=== PATIENT | female | born 1995 | race African-American/Black ===

== ENCOUNTER 2019-09-05 23:38 | Emergency (ER) | payer SELFPAY ==
[2019-09-06] MEDS ORDERED: NA CHLORIDE 0.9% 0 ML ONE (00:14)
[2019-09-06 00:17] LABS: Absolute Lymphocytes (CBC) 2.7 K/uL (0.7-4.9); Basophils % 0.9 % (0-1.3); Hematocrit 23.5 % (36.0-45.0); Lymphocytes % 37.9 % (15.3-44.8); MPV 9.4 fL (7.6-11.3); Protime INR 0.89; RBC Red Blood Cell Count 2.45 M/uL (3.86-4.86)
[2019-09-06 00:30] LABS: ALT/SGPT 14 U/L (12-78); AST/SGOT 18 U/L (15-37); Alkaline Phosphatase 70 U/L (45-117); BUN Blood Urea Nitrogen 11 mg/dL (7-18); Bicarbonate 22 mmol/L (21-32); Bilirubin Direct < 0.1 mg/dL (0-0.2); Bilirubin Total 0.2 mg/dL (0.2-1.0); Glucose Level 99 mg/dL (74-106); Magnesium 1.8 mg/dL (1.8-2.4); NT PRO-BNP 88 pg/mL (<125); Potassium 3.5 mmol/L (3.5-5.1); Protein, Total 6.2 g/dL (6.4-8.2); Sodium Level 141 mmol/L (136-145); Troponin (Emerg Dept Use Only) < 0.02 ng/mL (0.0-0.045)
--- NOTE | 2019-09-06 02:42 | EDPHYS ---
Physician Documentation [facility] Name: Nette Fabian Age: 23 yrs Sex: Female : 1995 Arrival Date: 09/05/2019 Time: 23:46 Bed 4 Private MD: ED Physician Luis Gordon HPI: 09/06 00:00 This 23 yrs old Black Female presents to ER via EMS with complaints of Chest Pain. pm1 00:00 The patient or guardian reports chest pain that is located primarily in the mid-sternal pm1 area. The pain does not radiate. Associated signs and symptoms: Pertinent positives: shortness of breath, vaginal bleeding. The chest pain is described as sharp. Duration: The patient or guardian reports a single episode, that is still ongoing. Modifying factors: The symptoms are alleviated by nothing. the symptoms are aggravated by palpation of area. Severity of pain: in the emergency department the pain is unchanged. The patient has been recently seen by a physician: Patient was seen at [place] on 09/02/2019 for vaginal bleeding. Ultrasound was performed, labs collected, and precription for iron prescribed. Patient has not started iron supplements yet. Patient presenting today with complaints of chest pain and shortness of breath that started at 2100. She has had 5 days of vaginal bleeding that she reports got worse today. She had a miscarriage 1 month ago. She was 4 months but the fetus only measure 8 weeks without a heart beat. She was receiving care at [facility] and they gave her pills to abort the fetus. She had no vaginal bleeding for 1.5 weeks until 5 days ago. Reports bleeding got worse today. 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 - Coronavirus screen:: The patient has NOT traveled to [place], [place], or [place] in the past 14 days. Proceed with normal triage process as indicated. The patient has NOT had contact with known/suspected case of Coronavirus? Proceed with normal triage procedures. - Social history:: Smoking status: Patient reports the use of cigarette tobacco products, smokes one pack cigarettes per day. Patient uses alcohol, occasionally. Patient/guardian denies using street drugs. - Ebola Screening: : Patient negative for fever greater than or equal to 101.5 degrees Fahrenheit, and additional compatible Ebola Virus Disease symptoms Patient denies exposure to infectious person Patient denies travel to an Ebola-affected area in the 21 days before illness onset. ROS: 09/06 00:00 Constitutional: Negative for fever, chills, and weight loss, Eyes: Negative for injury, pm1 pain, redness, and discharge, ENT: Negative for injury, pain, and discharge, Neck: Negative for injury, pain, and swelling. Abdomen/GI: Negative for abdominal pain, nausea, vomiting, diarrhea, and constipation, Back: Negative for injury and pain. MS/Extremity: Negative for injury and deformity, Skin: Negative for injury, rash, and discoloration, Neuro: Negative for headache, weakness, numbness, tingling, and seizure. Cardiovascular: Positive for chest pain, Negative for edema, orthopnea, palpitations. Respiratory: Positive for shortness of breath, Negative for cough, wheezing. : Positive for vaginal bleeding, Negative for urinary symptoms, pelvic pain. Exam: 00:00 Constitutional: This is a well developed, well nourished patient who is awake, alert, pm1 and in no acute distress. Head/Face: Normocephalic, atraumatic. Eyes: Pupils equal round and reactive to light, extra-ocular motions intact. Lids and lashes normal. Conjunctiva and sclera are non-icteric and not injected. Cornea within normal limits. Periorbital areas with no swelling, redness, or edema. ENT: Nares patent. No nasal discharge, no septal abnormalities noted. Tympanic membranes are normal and external auditory canals are clear. Oropharynx with no redness, swelling, or masses, exudates, or evidence of obstruction, uvula midline. Mucous membranes moist. Neck: Trachea midline, no thyromegaly or masses palpated, and no cervical lymphadenopathy. Supple, full range of motion without nuchal rigidity, or vertebral point tenderness. No Meningismus. Cardiovascular: Regular rate and rhythm with a normal S1 and S2. No gallops, murmurs, or rubs. No pulse deficits. 00:00 Respiratory: Lungs have equal breath sounds bilaterally, clear to auscultation and percussion. No rales, rhonchi or wheezes noted. No increased work of breathing, no retractions or nasal flaring. Abdomen/GI: Soft, non-tender, with normal bowel sounds. No distension or tympany. No guarding or rebound. No evidence of tenderness throughout. Back: No spinal tenderness. No costovertebral tenderness. Full range of motion. Skin: Warm, dry with normal turgor. Normal color with no rashes, no lesions, and no evidence of cellulitis. MS/ Extremity: Pulses equal, no cyanosis. Neurovascular intact. Full, normal range of motion. 00:00 Chest/axilla: Inspection: normal, Palpation: tenderness, of the mid-sternal area, that totally reproduces the patient's complaints. 00:00 Neuro: Orientation: is normal, Motor: is normal, moves all fours. 00:20 : Patient without any current vaginal bleeding. Tampon with spotting of blood pm1 present. Vital Signs: 09/05 23:26 BP 134 / 85; Pulse 123; Resp 24; Temp 98.3(O); Pulse Ox 100% on R/A; Weight 62.14 kg fc (R); Height 5 ft. 6 in. (167.64 cm) (R); Pain 9/10; 09/06 00:37 BP 120 / 84; Pulse 102; Resp 17 S; Pulse Ox 100% on R/A; jd3 01:28 BP 121 / 66; Pulse 102; Resp 18 S; Pulse Ox 100% on R/A; jd3 02:31 BP 125 / 87; Pulse 93; Resp 17 S; Pulse Ox 99% on R/A; jd3 09/05 23:26 Body Mass Index 22.11 (62.14 kg, 167.64 cm) MDM: 00:18 Patient medically screened. pm1 00:52 Data reviewed: diagnostic data from outside facility, CBC, electrolytes, Pelvic pm1 ultrasound from [place] [facility]. 02:19 Data reviewed: vital signs. Data interpreted: Pulse oximetry: on room air is 100 %. pm1 Interpretation: normal. 02:39 Counseling: I had a detailed discussion with the patient and/or guardian regarding: the pm1 historical points, exam findings, and any diagnostic results supporting the discharge/admit diagnosis, lab results, radiology results, the need for outpatient follow up, a family practitioner, an OB/Gyne specialist, to return to the emergency department if symptoms worsen or persist or if there are any questions or concerns that arise at home. 02:54 ED course: Patient with two negative troponin levels. Patient's tachycardia resolved pm1 with IV fluids and pain mediations. Patient is not having anymore vaginal bleeding and her hemoglobin level is not at transfusion level. therefore will discharge the patient home to follow up with liability claims representative and educated on return precautions . 09/05 23:50 Order name: Basic Metabolic Panel 09/05 23:50 Order name: CBC with Diff 09/05 23:50 Order name: LFT's 09/05 23:50 Order name: Magnesium 09/05 23:50 Order name: NT PRO-BNP 09/05 23:50 Order name: PT-INR 09/05 23:50 Order name: Troponin (emerg Dept Use Only) [facility] 09/05 23:55 Order name: Type And Screen 09/06 00:22 Order name: CBC with Automated Diff; Complete Time: 00:28 EDMS 09/06 00:22 Order name: Protime (+INR); Complete Time: 01:10 EDMS 09/06 00:24 Order name: D-Dimer jd3 09/06 00:31 Order name: Basic Metabolic Panel; Complete Time: 00:34 EDMS 09/06 00:31 Order name: Liver (Hepatic) Function; Complete Time: 00:34 EDMS 09/06 00:31 Order name: Troponin (Emerg Dept Use Only); Complete Time: 00:34 EDMS 09/05 23:50 Order name: XRAY Chest (1 view) 09/05 23:50 Order name: EKG; Complete Time: 23:59 [facility] 09/05 23:50 Order name: Cardiac monitoring; Complete Time: 23:51 [facility] 09/05 23:50 Order name: EKG - Nurse/Tech; Complete Time: 00:02 [facility] 09/05 23:50 Order name: IV Saline Lock; Complete Time: 00:02 [facility] 09/05 23:50 Order name: Labs collected and sent; Complete Time: 00:02 [facility] 09/06 00:31 Order name: NT PRO-BNP; Complete Time: 00:34 EDMS 09/06 00:31 Order name: Magnesium; Complete Time: 00:34 EDMS 09/06 00:59 Order name: Type and Screen; Complete Time: 01:10 EDMS 09/06 01:01 Order name: D-Dimer; Complete Time: 01:10 EDMS 09/06 01:51 Order name: Troponin (emerg Dept Use Only) pm1 09/06 02:37 Order name: Troponin (Emerg Dept Use Only); Complete Time: 02:39 EDMS 09/05 23:50 Order name: O2 Per Protocol; Complete Time: 23:51 mw2 09/05 23:50 Order name: O2 Sat Monitoring; Complete Time: 23:51 mw2 Administered Medications: 00:36 Drug: NS 0.9% 1000 ml Route: IV; Rate: 1 bolus; Site: right antecubital; jd3 02:07 Follow up: Response: No adverse reaction; IV Status: Completed infusion; IV Intake: jd3 1000ml 00:37 Drug: morphine 4 mg Route: IVP; Site: right antecubital; jd3 01:30 Follow up: Response: No adverse reaction; RASS: Alert and Calm (0) jd3 00:37 Drug: Zofran 4 mg Route: IVP; Site: right antecubital; jd3 01:30 Follow up: Response: No adverse reaction jd3 02:06 Drug: TORadol - Ketorolac 15 mg Route: IVP; Site: right antecubital; jd3 02:55 Follow up: Response: No adverse reaction jd3 Disposition: 05:18 Co-signature as Attending Physician, Luis Gordon MD I agree with the assessment and tw4 plan of care. Disposition: 09/06/19 02:41 Discharged to Home. Impression: Chest pain, unspecified, Anemia, unspecified, Abnormal uterine and vaginal bleeding, unspecified. - Condition is Stable. - Discharge Instructions: Abnormal Uterine Bleeding, Anemia, Nonspecific, Nonspecific Chest Pain. - Medication Reconciliation Form, Thank You Letter, Antibiotic Education, Prescription Opioid Use, Work release form form. - Follow up: Emergency Department; When: As needed; Reason: Worsening of condition. Follow up: Private Physician; When: 2 - 3 days; Reason: Recheck today's complaints, Continuance of care, Re-evaluation by your physician. - Problem is new. - Symptoms have improved. Signatures: Dispatcher [employer] EDTX Anjali Salinas, RN RN Geronimo Jones NP MOBILE HEAVY EQUIPMENT OPERATOR pm1 Reid Aviles RN RN jLuis Foreman MD MD tw4 Harjeet Enrique mw2 Corrections: (The following items were deleted from the chart) 02:56 02:41 09/06/2019 02:41 Discharged to Home. Impression: Chest pain, unspecified; Anemia, jd3 unspecified; Abnormal uterine and vaginal bleeding, unspecified. Condition is Stable. Forms are Medication Reconciliation Form, Thank You Letter, Antibiotic Education, Prescription Opioid Use. Follow up: Emergency Department; When: As needed; Reason: Worsening of condition. Follow up: Private Physician; When: 2 - 3 days; Reason: Recheck today's complaints, Continuance of care, Re-evaluation by your physician. Problem is new. Symptoms have improved. pm1
--- NOTE | 2019-09-06 02:42 | ER ---
Nurse's Notes [facility] Name: Nette Fabian Age: 23 yrs Sex: Female : 1995 Arrival Date: 09/05/2019 Time: 23:46 Bed 4 Private MD: Diagnosis: Chest pain, unspecified;Anemia, unspecified;Abnormal uterine and vaginal bleeding, unspecified Presentation: 09/05 23:26 Presenting complaint: Patient states: that for approx 5 days she has been having fc significant vaginal bleeding. Hx of miscarriage 1 month ago. Today the bleeding got worse and she has gone thru 4-5 pads every hr. Now she is currently having chest pain and shortness of breath but denies any nausea or vomiting. Transition of care: patient was not received from another setting of care. Onset of symptoms was August 31, 2019. Risk Assessment: Do you want to hurt yourself or someone else? Patient reports no desire to harm self or others. Initial Sepsis Screen: Does the patient meet any 2 criteria? RR > 20 per min. HR > 90 bpm. Yes Does the patient have a suspected source of infection? No. Patient's initial sepsis screen is negative. Care prior to arrival: Medication(s) given: Normal saline infusion, 300 ml IV initiated. 20 GA, in the right antecubital area. 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 - Coronavirus screen:: The patient has NOT traveled to [place], [place], or [place] in the past 14 days. Proceed with normal triage process as indicated. The patient has NOT had contact with known/suspected case of Coronavirus? Proceed with normal triage procedures. - Social history:: Smoking status: Patient reports the use of cigarette tobacco products, smokes one pack cigarettes per day. Patient uses alcohol, occasionally. Patient/guardian denies using street drugs. - Ebola Screening: : Patient negative for fever greater than or equal to 101.5 degrees Fahrenheit, and additional compatible Ebola Virus Disease symptoms Patient denies exposure to infectious person Patient denies travel to an Ebola-affected area in the 21 days before illness onset. Screenin:26 Abuse screen: Denies threats or abuse. Nutritional screening: No deficits noted. fc Tuberculosis screening: No symptoms or risk factors identified. Fall Risk None identified. Assessment: 23:58 General: Appears in no apparent distress. uncomfortable, Behavior is cooperative, jd3 appropriate for age, anxious. Pain: Complains of pain in chest Pain does not radiate. Quality of pain is described as pressure, Pain began suddenly. Neuro: Level of Consciousness is awake, alert, obeys commands, Oriented to person, place, time, situation. Cardiovascular: Reports chest pain, Capillary refill < 3 seconds Patient's skin is warm and dry. Rhythm is sinus tachycardia. Respiratory: Reports shortness of breath at rest Airway is patent Respiratory effort is even, unlabored, Respiratory pattern is regular, symmetrical, Denies cough. GI: Abdomen is round non-distended, Abd is soft and non tender X 4 quads. Patient currently denies nausea, vomiting. : Reports vaginal bleeding that is bright red, with clots, heavy flow. EENT: No signs and/or symptoms were reported regarding the EENT system. Derm: Skin is intact, Skin is dry, Skin is normal, Skin temperature is warm. Musculoskeletal: Circulation, motion, and sensation intact. Range of motion: intact in all extremities. 09/06 00:37 Reassessment: Patient appears in no apparent distress at this time. No changes from jd3 previously documented assessment. Patient and/or family updated on plan of care and expected duration. Pain level reassessed. Patient is alert, oriented x 3, equal unlabored respirations, skin warm/dry/pink. 01:28 Reassessment: Patient appears in no apparent distress at this time. Patient and/or jd3 family updated on plan of care and expected duration. Pain level reassessed. Patient is alert, oriented x 3, equal unlabored respirations, skin warm/dry/pink. Patient states feeling better. 02:31 Reassessment: Patient appears in no apparent distress at this time. Patient and/or jd3 family updated on plan of care and expected duration. Pain level reassessed. Patient is alert, oriented x 3, equal unlabored respirations, skin warm/dry/pink. Patient states feeling better. Vital Signs: 09/05 23:26 BP 134 / 85; Pulse 123; Resp 24; Temp 98.3(O); Pulse Ox 100% on R/A; Weight 62.14 kg fc (R); Height 5 ft. 6 in. (167.64 cm) (R); Pain 9/10; 09/06 00:37 BP 120 / 84; Pulse 102; Resp 17 S; Pulse Ox 100% on R/A; jd3 01:28 BP 121 / 66; Pulse 102; Resp 18 S; Pulse Ox 100% on R/A; jd3 02:31 BP 125 / 87; Pulse 93; Resp 17 S; Pulse Ox 99% on R/A; jd3 09/05 23:26 Body Mass Index 22.11 (62.14 kg, 167.64 cm) ED Course: 09/05 23:26 Arm band placed on Patient placed in an exam room, on a stretcher. fc 23:26 Patient has correct armband on for positive identification. Placed in gown. Bed in low fc position. Call light in reach. Side rails up X2. technical sales consultant on. Pulse ox on. NIBP on. 23:26 Maintain EMS IV. Dressing intact. Good blood return noted. Site clean \T\ dry. Gauge \T\ fc site: 20 gauge to right a/c. 23:40 EKG done, by ED staff, reviewed by Luis Gordon MD. fc 23:46 Patient arrived in ED. cf2 23:50 Triage completed. fc 23:56 Geronimo Flood NP is PHCP. pm1 23:56 Luis Gordon MD is Attending Physician. pm1 23:58 Reid Aviles RN is Primary Nurse. jd3 09/06 00:01 Patient maintains SpO2 saturation greater than 95% on room air. jd3 02:54 No provider procedures requiring assistance completed. IV discontinued, intact, jd3 bleeding controlled, No redness/swelling at site. Pressure dressing applied. Administered Medications: 00:36 Drug: NS 0.9% 1000 ml Route: IV; Rate: 1 bolus; Site: right antecubital; jd3 02:07 Follow up: Response: No adverse reaction; IV Status: Completed infusion; IV Intake: jd3 1000ml 00:37 Drug: morphine 4 mg Route: IVP; Site: right antecubital; jd3 01:30 Follow up: Response: No adverse reaction; RASS: Alert and Calm (0) jd3 00:37 Drug: Zofran 4 mg Route: IVP; Site: right antecubital; jd3 01:30 Follow up: Response: No adverse reaction jd3 02:06 Drug: TORadol - Ketorolac 15 mg Route: IVP; Site: right antecubital; jd3 02:55 Follow up: Response: No adverse reaction jd3 Intake: 02:07 IV: 1000ml; Total: 1000ml. jd3 Outcome: 02:41 Discharge ordered by MD. pm1 02:55 Discharged to home ambulatory, with friend. jd3 02:55 Condition: stable 02:55 Discharge instructions given to patient, Instructed on discharge instructions, follow up and referral plans. Demonstrated understanding of instructions, follow-up care. 02:56 Patient left the ED. jd3 Signatures: Anjali Salinas RN RN fc Marinas, Patrick, NP ARCHIVAL STUDIES PROFESSOR pm1 Reid Aviles RN RN jMissy Gomez 2
--- NOTE | 2019-09-06 06:46 | RAD REPORT ---
EXAM DESCRIPTION: RAD - Chest Single View - 09/06/2019 12:20 am CLINICAL HISTORY: CHEST PAIN Chest pain. COMPARISON: No comparisons FINDINGS: Portable technique limits examination quality. The lungs are grossly clear. The heart is normal in size. No displaced fractures. IMPRESSION: No acute intrathoracic process suspected.
--- NOTE | 2019-09-06 08:46 | EKG ---
Test Date: 2019-09-05 Test Time: 23:40:45 Corporate Law Assistant: JAMA MEASUREMENT RESULTS: Intervals: Rate: 130 NE: 126 QRSD: 76 QT: 298 QTc: 438 [place]: P: 74 NE: 126 QRS: 69 T: 57 INTERPRETIVE STATEMENTS: Sinus tachycardia Otherwise normal ECG No previous ECG available for comparison Electronically Signed On 09-06-19 08:46:01 VAULT ATTENDANT by Indra Galindo
[2019-09-08 02:32] VITALS: BP 125/87; O2SAT 99
== END 2019-09-06 02:56 | disposition home or self-care (01) ==
LOC: ER 23:38
DX: O03.6 Delayed or excessive hemorrhage following complete or unspecified spontaneous abortion (principal); R07.9 Chest pain, unspecified; D64.9 Anemia, unspecified; N93.9 Abnormal uterine and vaginal bleeding, unspecified
CPT/HCPCS: 36415; 71045; 80048; 80076; 83735; 83880; 84484; 85025; 85379; 85610; 86850; 86900; 86901; 93005; 96361; 96374; 96375; 99285; J7030

== ENCOUNTER 2020-11-25 03:27 | Emergency (ER) | payer OTHER ==
--- OUTSIDE RECORDS SUMMARY | 2020-11-25 03:29 | XMS REPORT | Continuity of Care Document ---
:[address] [facility] t Address [address] [place] [address] Care Team Providers Name Role Phone Josesito Lestre DO Attending Clinician Maximiliano Lyons Attending Clinician Katharina Medeiros Attending Clinician Problems This patient has no known problems. Allergies, Adverse Reactions, Alerts This patient has no known allergies or adverse reactions. Medications This patient has no known medications. Procedures This patient has no known procedures. Encounters Start End Encounter Admission Attending Care Care Encounter Source Date/Time Date/Time Type Type Clinicians Facility Department ID 2020-10-16 2020-10-16 Patient Trevon [facility] [id number] 00:00:00 00:00:00 Outreach Josesito REDMAN [id number] Devon [facility] [id number] [place] [id number] 2020-05-08 2020-05-08 Office Rui [facility] [id number] 15:26:17 16:00:17 Visit Klarissa Viera CLAIMS AUDITOR [id number] REGIONAL [id number] MATERNAL [id number] & CHILD [address] [place] [address] 2020-05-08 2020-05-08 Telephone Teofilo NVRAFAEL [id number] 00:00:00 00:00:00 Ana Cristina Posadas CLAIMS AUDITOR [id number] REGIONAL [id number] MATERNAL [id number] & CHILD [address] [place] [address] Results This patient has no known results.
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
[2020-11-25 06:01] VITALS: BP 132/85; O2SAT 98
[2020-11-25] MEDS ORDERED: ACETAMINOPHEN 500 MG TAB ONE (06:02)
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
== END 2020-11-25 05:53 | disposition home or self-care (01) ==
LOC: ER 03:27
DX: S00.03XA Contusion of scalp, initial encounter (principal); F10.129 Alcohol abuse with intoxication, unspecified; Y00.XXXA Assault by blunt object, initial encounter
CPT/HCPCS: 70450; 72125; 99284

== ENCOUNTER 2021-12-22 13:24 | Emergency (ER) | payer OTHER ==
--- OUTSIDE RECORDS SUMMARY | 2021-12-22 13:28 | XMS REPORT | Continuity of Care Document ---
:1995 Author Organization [facility] t Address [address] [place] [address] Care Team Providers Name Role Phone Josesito Lester DO Attending Clinician Rui PARRA, N Attending Clinician Maximiliano VAZQUEZ Attending Clinician Unavailable Teofilo HICKS C Attending Clinician Rafael CRAIN, Cam Attending Clinician Pascual PARRA Attending Clinician Trimester, Res-1st Attending Clinician Unavailable Paul CRAIN, L Attending Clinician Vimal PARRA Attending Clinician Payers Payer Name Policy Type Policy Number Effective Date Expiration Date S ource Problems Condition Condition Condition Status Onset Resolution Last Treating Co mments Source Name Details Category Date Date Treatment Clinician Date Tobacco Tobacco Disease Active 2017-07 Overview: Univ ers use in use [place] 0-25 [place] [facility] Multiparit Multiparit Disease Active 2017-07 U nivers y y 0-25 ity of 00:00: [address] Supervisio Supervisio Disease Active 2017-07 U nivers n of n of 0-25 [place] of high[place] [facility] No known No known Disease Unive rs active active ity of problems problems [facility] Allergies, Adverse Reactions, Alerts Allergy Allergy Status Severity Reaction(s) Onset Inactive Treating Comm ents Source Name Type Date Date Clinician NO KNOWN Drug Active Univers ALLERGIE Class ity of S [facility] Social History Social Habit Start Date Stop Date Quantity Comments Source ASSERTION 2019-06-09 University of 00:00:00 [facility] Exposure to Not sure University of SARS-CoV-2 [facility] (event) Branch Tobacco use and 2020-05-08 2020-05-08 Never used Universit y of exposure 00:00:00 00:00:00 [facility] Alcohol intake 2020-05-08 2020-05-08 Current University of 00:00:00 00:00:00 non-drinker of [facility] [place] [facility] alcohol (finding) Branch History of 2009-07-09 2019-06-21 Cigarette Smoker Universi ty of tobacco use 00:00:00 00:00:00 [facility] Tobacco Comment 2018-05-20 2018-05-20 2 cigarettes/day Uni versity of 00:00:00 00:00:00 [facility] Sex Assigned At [birth year] Universit y of 00:00:00 00:00:00 [facility] Smoking Status Start Date Stop Date Source Former smoker 2020-05-08 00:00:00 2020-05-08 00:00:00 Universi ty of [facility] Medications Ordered Filled Start Stop Current Ordering Indication Dosage Frequency Signature Comments Components Source Medication Medication Date Date Medication? Clinician (SIG) Name Name 2019-07 No Take by [facility] ers vit/iron 0-13 10-13 mouth. ity of fum/folic 20:50: 00:00 [place] ac 50 :00 Medical ( 1 Branch + 1 ORAL) 2019-07- No Take by [facility] ers vit/iron 0-13 10-13 mouth. ity of fum/folic 20:50: 00:00 [place] ac 50 :00 Medical ( 1 Branch + 1 ORAL) miSOPROStol 2020- No [id number] 800ug Univers (CYTOTEC) 08-11 ity of tablet 800 16:45: 15:53 [place] mcg 00 :00 Medical Branch ibuprofen 2019- No [id number] 800mg Un yary (IBU) 08-11 ity of tablet 800 16:45: 15:53 [place] mg 00 :00 Medical Branch ibuprofen 2019- No [id number] 800mg 800 mg, Univers (IBU) 08-11 Oral, ity of tablet 800 16:45: 15:53 ONCE, 1 Marc as mg 00 :00 dose, [facility] 08/11/19 at [place] [address], Routine miSOPROStol 2019- 2020- No [id number] 800ug 800 mcg, Univers (CYTOTEC) 08-11 Vaginal, ity o f tablet 800 16:45: 15:53 ONCE, 1 Marc as mcg 00 :00 dose, [facility] 08/11/19 at [place] [address], Routine miSOPROStol 2019-0 2020- No [id number] 800ug Univers (CYTOTEC) 08-11 ity of tablet 800 16:45: 15:53 [place] mcg 00 :00 [facility] ibuprofen 2019-0 2020- No [id number] 800mg Un yary (IBU) 08-11 ity of tablet 800 16:45: 15:53 [place] mg 00 :00 [facility] ibuprofen 2019-0 2020- No [id number] 800mg 800 mg, Univers (IBU) 08-11 Oral, ity of tablet 800 16:45: 15:53 ONCE, 1 Marc as mg 00 :00 dose, [facility] 08/11/19 at [place] [address], Routine miSOPROStol 2019-0 2020- No [id number] 800ug 800 mcg, Univers (CYTOTEC) 08-11 Vaginal, ity o f tablet 800 16:45: 15:53 ONCE, 1 Marc as mcg 00 :00 dose, [facility] 08/11/19 at [place] [address], Routine ibuprofen 2020-0 Yes [id number] 600mg Take 1 U nivers 600 mg 1-16 tablet by ity of tablet 00:00: mouth [place] 00 every 6 Medical (six) Branch hours as needed (for pain). HYDROcodone 2020-0 Yes [id number] 1{tbl} Take 1 Univers -acetaminop 1-16 tablet by ity of hen 5-325 00:00: mouth [place] mg tablet 00 every 6 Medical (six) Branch hours as needed (for pain). ibuprofen 2020-0 Yes [id number] 600mg Take 1 U nivers 600 mg 1-16 tablet by ity of tablet 00:00: mouth [place] 00 every 6 Medical (six) Branch hours as needed (for pain). HYDROcodone 2020-0 Yes [id number] 1{tbl} Take 1 Univers -acetaminop 1-16 tablet by ity of hen 5-325 00:00: mouth [place] mg tablet 00 every 6 Medical (six) Branch hours as needed (for pain). ibuprofen 2020-0 Yes [id number] 600mg Take 1 U nivers 600 mg 1-16 tablet by ity of tablet 00:00: mouth [place] 00 every 6 Medical (six) Branch hours as needed (for pain). HYDROcodone 2020-0 Yes [id number] 1{tbl} Take 1 Univers -acetaminop 1-16 tablet by ity of hen 5-325 00:00: mouth [place] mg tablet 00 every 6 Medical (six) Branch hours as needed (for pain). ibuprofen 2020-0 Yes [id number] 600mg Take 1 U nivers 600 mg 1-16 tablet by ity of tablet 00:00: mouth [place] 00 every 6 Medical (six) Branch hours as needed (for pain). HYDROcodone 2020-0 Yes [id number] 1{tbl} Take 1 Univers -acetaminop 1-16 tablet by ity of hen 5-325 00:00: mouth [place] mg tablet 00 every 6 Medical (six) Branch hours as needed (for pain). ibuprofen 2020-0 Yes [id number] 600mg Take 1 U nivers 600 mg 1-16 tablet by ity of tablet 00:00: mouth [place] 00 every 6 Medical (six) Branch hours as needed (for pain). HYDROcodone 2020-0 Yes [id number] 1{tbl} Take 1 Univers -acetaminop 1-16 tablet by ity of hen 5-325 00:00: mouth [place] mg tablet 00 every 6 Medical (six) Branch hours as needed (for pain). ibuprofen 2020-0 Yes [id number] 600mg Take 1 U nivers 600 mg 1-16 tablet by ity of tablet 00:00: mouth [place] 00 every 6 Medical (six) Branch hours as needed (for pain). HYDROcodone 2020-0 Yes [id number] 1{tbl} Take 1 Univers -acetaminop 1-16 tablet by ity of hen 5-325 00:00: mouth [place] mg tablet 00 every 6 Medical (six) Branch hours as needed (for pain). ibuprofen 2020-0 Yes [id number] 600mg Take 1 U nivers 600 mg 1-16 tablet by ity of tablet 00:00: mouth [place] 00 every 6 Medical (six) Branch hours as needed (for pain). HYDROcodone 2020-0 Yes [id number] 1{tbl} Take 1 Univers -acetaminop 1-16 tablet by ity of hen 5-325 00:00: mouth [place] mg tablet 00 every 6 Medical (six) Branch hours as needed (for pain). ibuprofen 2020- No [id number] 600mg Take 1 Univers 600 mg 1-16 10-13 tablet by ity of tablet 00:00: 00:00 mouth [place] 00 :00 every 6 Medical (six) Branch hours as needed (for pain). HYDROcodone 2019- 2020- No [id number] 1{tbl} Take 1 Univers -acetaminop 1-16 10-13 tablet by it y of hen 5-325 00:00: 00:00 mouth [place] mg tablet 00 :00 every 6 Medical (six) Branch hours as needed (for pain). ibuprofen 2020- No [id number] 600mg Take 1 Univers 600 mg 1-16 10-13 tablet by ity of tablet 00:00: 00:00 mouth [place] 00 :00 every 6 Medical (six) Branch hours as needed (for pain). HYDROcodone 2020- No [id number] 1{tbl} Take 1 Univers -acetaminop 1-16 10-13 tablet by it y of hen 5-325 00:00: 00:00 mouth [place] mg tablet 00 :00 every 6 Medical (six) Branch hours as needed (for pain). 2020-0 Yes Take by Unive rs vit/iron 1-13 mouth. ity of fum/folic 14:55: [place] [address] Medical ( 1 Branch + 1 ORAL) 2020-0 Yes Take by Unive rs vit/iron 1-13 mouth. ity of fum/folic 14:55: [place] [address] Medical ( 1 Branch + 1 ORAL) 2020-0 Yes Take by Unive rs vit/iron 1-13 mouth. ity of fum/folic 14:55: [place] [address] Medical ( 1 Branch + 1 ORAL) 2020-0 Yes Take by Unive rs vit/iron 1-13 mouth. ity of fum/folic 14:55: [place] [address] Medical ( 1 Branch + 1 ORAL) 2020-0 Yes Take by Unive rs vit/iron 1-13 mouth. ity of fum/folic 14:55: [facility] 22 Medical ( 1 Branch + 1 ORAL) 2020-0 Yes Take by Unive rs vit/iron 1-13 mouth. ity of fum/folic 14:55: [facility] 22 Medical ( 1 Branch + 1 ORAL) 2020-0 Yes Take by Unive rs vit/iron 1-13 mouth. ity of fum/folic 14:55: [facility] 22 Medical ( 1 Branch + 1 ORAL) 2020-0 Yes Take by Unive rs vit/iron 1-13 mouth. ity of fum/folic 14:55: [facility] 22 Medical ( 1 Branch + 1 ORAL) PNV 67-iron 2020-0 Yes [id number] 1{each} Take 1 Univers ps-folate 1-13 Each by ity of no.1-dha 00:00: mouth [place] (VITAFOL 00 daily. Medical ULTRA) 29 Branch mg iron- 1 mg-200 mg Cap PNV 67-iron 2020-0 Yes [id number] 1{each} Take 1 Univers ps-folate 1-13 Each by ity of no.1-dha 00:00: mouth [place] (VITAFOL 00 daily. Medical ULTRA) 29 Branch mg iron- 1 mg-200 mg Cap PNV 67-iron 2020-0 Yes [id number] 1{each} Take 1 Univers ps-folate 1-13 Each by ity of no.1-dha 00:00: mouth [place] (VITAFOL 00 daily. Medical ULTRA) 29 Branch mg iron- 1 mg-200 mg Cap PNV 67-iron 2020-0 Yes [id number] 1{each} Take 1 Univers ps-folate 1-13 Each by ity of no.1-dha 00:00: mouth [place] (VITAFOL 00 daily. Medical ULTRA) 29 Branch mg iron- 1 mg-200 mg Cap PNV 67-iron 2020-0 Yes [id number] 1{each} Take 1 Univers ps-folate 1-13 Each by ity of no.1-dha 00:00: mouth [place] (VITAFOL 00 daily. Medical ULTRA) 29 Branch mg iron- 1 mg-200 mg Cap PNV 67-iron 2020-0 Yes [id number] 1{each} Take 1 Univers ps-folate 1-13 Each by ity of no.1-dha 00:00: mouth [place] (VITAFOL 00 daily. Medical ULTRA) 29 Branch mg iron- 1 mg-200 mg Cap PNV 67-iron 2020-0 Yes [id number] 1{each} Take 1 Univers ps-folate 1-13 Each by ity of no.1-dha 00:00: mouth [place] (VITAFOL 00 daily. Medical ULTRA) 29 Branch mg iron- 1 mg-200 mg Cap PNV 67-iron 2020-0 Yes [id number] 1{each} Take 1 Univers ps-folate 1-13 Each by ity of no.1-dha 00:00: mouth [place] (VITAFOL 00 daily. Medical ULTRA) 29 Branch mg iron- 1 mg-200 mg Cap PNV 67-iron 2020-0 2020- No [id number] 1{each} Take 1 Univers ps-folate 1-13 10-13 Each by ity of no.1-dha 00:00: 00:00 mouth [place] (VITAFOL 00 :00 daily. Medical ULTRA) 29 Branch mg iron- 1 mg-200 mg Cap PNV 67-iron 2020-0 2020- No [id number] 1{each} Take 1 Univers ps-folate 1-13 10-13 Each by ity of no.1-dha 00:00: 00:00 mouth [place] (VITAFOL 00 :00 daily. Medical ULTRA) 29 Branch mg iron- 1 mg-200 mg Cap norgestimat 2019-0 Yes [id number] 1{tbl} Take 1 Univers e-ethinyl 6-12 tablet by ity o f estradiol 00:00: mouth [place] 0.25-35 00 daily. Medical mg-mcg per Branch tablet norgestimat 2019-0 Yes [id number] 1{tbl} Take 1 Univers e-ethinyl 6-12 tablet by ity o f estradiol 00:00: mouth [place] 0.25-35 00 daily. Medical mg-mcg per Branch tablet norgestimat 2019-0 Yes [id number] 1{tbl} Take 1 Univers e-ethinyl 6-12 tablet by ity o f estradiol 00:00: mouth [place] 0.25-35 00 daily. Medical mg-mcg per Branch tablet norgestimat 2019-0 Yes [id number] 1{tbl} Take 1 Univers e-ethinyl 6-12 tablet by ity o f estradiol 00:00: mouth [place] 0.25-35 00 daily. Medical mg-mcg per Branch tablet norgestimat Yes [id number] 1{tbl} Take 1 Univers e-ethinyl 6-12 tablet by ity o f estradiol 00:00: mouth [place] 0.25-35 00 daily. Medical mg-mcg per Branch tablet norgestimat Yes [id number] 1{tbl} Take 1 Univers e-ethinyl 6-12 tablet by ity o f estradiol 00:00: mouth [place] 0.25-35 00 daily. Medical mg-mcg per Branch tablet norgestimat Yes [id number] 1{tbl} Take 1 Univers e-ethinyl 6-12 tablet by ity o f estradiol 00:00: mouth [place] 0.25-35 00 daily. Medical mg-mcg per Branch tablet norgestimat Yes [id number] 1{tbl} Take 1 Univers e-ethinyl 6-12 tablet by ity o f estradiol 00:00: mouth [place] 0.25-35 00 daily. Medical mg-mcg per Branch tablet norgestimat 2020- No [id number] 1{tbl} Take 1 Univers e-ethinyl 6-12 10-13 tablet by ity of estradiol 00:00: 00:00 mouth [place] 0.25-35 00 :00 daily. Medical mg-mcg per Branch tablet norgestimat 2020- No [id number] 1{tbl} Take 1 Univers e-ethinyl 6-12 10-13 tablet by ity of estradiol 00:00: 00:00 mouth [place] 0.25-35 00 :00 daily. Medical mg-mcg per Branch tablet ibuprofen Yes [id number] 600mg Take 1 Univers 600 mg 5-08 102 tablet by ity of tablet 00:00: mouth [place] 00 every 6 Medical (six) Branch hours as needed for Pain (scale 1-3) or Pain (scale 4-6) (Pain). Take with food or milk. ibuprofen Yes [id number] 600mg Take 1 Univers 600 mg 5-08 102 tablet by ity of tablet 00:00: mouth [place] 00 every 6 Medical (six) Branch hours as needed for Pain (scale 1-3) or Pain (scale 4-6) (Pain). Take with food or milk. ibuprofen 2019-0 Yes [id number] 600mg Take 1 Univers 600 mg 5-08 102 tablet by ity of tablet 00:00: mouth [place] 00 every 6 Medical (six) Branch hours as needed for Pain (scale 1-3) or Pain (scale 4-6) (Pain). Take with food or milk. ibuprofen Yes [id number] 600mg Take 1 Univers 600 mg 5-08 102 tablet by ity of tablet 00:00: mouth [place] 00 every 6 Medical (six) Branch hours as needed for Pain (scale 1-3) or Pain (scale 4-6) (Pain). Take with food or milk. ibuprofen Yes [id number] 600mg Take 1 Univers 600 mg 5-08 102 tablet by ity of tablet 00:00: mouth [place] 00 every 6 Medical (six) Branch hours as needed for Pain (scale 1-3) or Pain (scale 4-6) (Pain). Take with food or milk. ibuprofen Yes [id number] 600mg Take 1 Univers 600 mg 5-08 102 tablet by ity of tablet 00:00: mouth [place] 00 every 6 Medical (six) Branch hours as needed for Pain (scale 1-3) or Pain (scale 4-6) (Pain). Take with food or milk. ibuprofen 0 Yes [id number] 600mg Take 1 Univers 600 mg 5-08 102 tablet by ity of tablet 00:00: mouth [place] 00 every 6 Medical (six) Branch hours as needed for Pain (scale 1-3) or Pain (scale 4-6) (Pain). Take with food or milk. ibuprofen 0 Yes [id number] 600mg Take 1 Univers 600 mg 5-08 102 tablet by ity of tablet 00:00: mouth [place] 00 every 6 Medical (six) Branch hours as needed for Pain (scale 1-3) or Pain (scale 4-6) (Pain). Take with food or milk. ibuprofen 2020- No [id number] 600mg Take 1 Univers 600 mg 5-08 10-13 102 tablet by ity of tablet 00:00: 00:00 mouth [place] 00 :00 every 6 Medical (six) Branch hours as needed for Pain (scale 1-3) or Pain (scale 4-6) (Pain). Take with food or milk. ibuprofen 2019-0 2020- No [id number] 600mg Take 1 Univers 600 mg 12-01 102 tablet by ity of tablet 00:00: 00:00 mouth [place] 00 :00 every 6 Medical (six) Branch hours as needed for Pain (scale 1-3) or Pain (scale 4-6) (Pain). Take with food or milk. No known No Univers medications ity of [facility] No known No Univers medications ity of [facility] Immunizations Ordered Filled Immunization Date Status Comments [facility] e Immunization Name Name [facility] 2018-09-20 Completed University of 00:00:00 [facility] Influenza Virus 2018-09-20 Completed Universit y of Vaccine Quad .5 mL 00:00:00 [place] [address] MO [facility] 2018-09-20 Completed University of 00:00:00 [facility] Influenza Virus 2018-09-20 Completed Universit y of Vaccine Quad .5 mL 00:00:00 [facility] 6+ MO Branch [facility] 2018-09-20 Completed University of 00:00:00 [facility] Influenza Virus 2018-09-20 Completed Universit y of Vaccine Quad .5 mL 00:00:00 [place] [address] MO Branch [facility] 2018-09-20 Completed University of 00:00:00 [facility] Influenza Virus 2018-09-20 Completed Universit y of Vaccine Quad .5 mL 00:00:00 [place] [address] MO [facility] 2018-09-20 Completed University of 00:00:00 [facility] Influenza Virus 2018-09-20 Completed Universit y of Vaccine Quad .5 mL 00:00:00 [facility] 6+ MO [facility] 2018-09-20 Completed University of 00:00:00 [facility] 2018-09-20 Completed University of 00:00:00 [facility] Influenza Virus 2018-09-20 Completed Universit y of Vaccine Quad .5 mL 00:00:00 [facility] 6+ MO [facility] Influenza Virus 2018-09-20 Completed Universit y of Vaccine Quad .5 mL 00:00:00 [facility] 6+ MO [facility] TDAP 2018-09-20 Completed University of 00:00:00 [facility] Influenza Virus 2018-09-20 Completed Universit y of Vaccine Quad .5 mL 00:00:00 [place] [address] MO [facility] Td 2018-09-20 Completed University of 00:00:00 [facility] Influenza Virus 2018-09-20 Completed Universit y of Vaccine Quad .5 mL 00:00:00 [place] [facility] 6+ MO Branch Tdap 2018-09-20 Completed University of 00:00:00 [facility] Influenza Virus 2018-09-20 Completed Universit y of Vaccine Quad .5 mL 00:00:00 [place] [facility] IM 6+ MO Branch Tdap 2018-09-20 Completed University of 00:00:00 [facility] Influenza Virus 2018-09-20 Completed Universit y of Vaccine Quad .5 mL 00:00:00 [place] [facility] IM 6+ MO Branch Tdap 2018-09-20 Completed University of 00:00:00 [facility] Influenza Virus 2018-09-20 Completed Universit y of Vaccine Quad .5 mL 00:00:00 [facility] 6+ [place] Branch HPV9 2017-07-09 Completed University of 00:00:00 [facility] HPV9 2017-07-09 Completed University of 00:00:00 [facility] HPV9 2017-07-09 Completed University of 00:00:00 [facility] HPV9 2017-07-09 Completed University of 00:00:00 [facility] Branch HPV9 2017-07-09 Completed University of 00:00:00 [facility] Branch HPV9 2017-07-09 Completed University of 00:00:00 [facility] Branch HPV9 2017-07-09 Completed University of 00:00:00 [facility] Branch HPV9 2017-07-09 Completed University of 00:00:00 [facility] HPV9 2017-07-09 Completed University of 00:00:00 [facility] Branch HPV9 2017-07-09 Completed University of 00:00:00 [facility] Branch HPV9 2017-07-09 Completed University of 00:00:00 [facility] Branch HPV9 2017-07-09 Completed University of 00:00:00 [facility] TDAP (ADACEL) 2014-12-07 Completed University of VACCINE 00:00:00 [facility] TDAP (ADACEL) 2014-12-07 Completed University of VACCINE 00:00:00 [facility] TDAP (ADACEL) 2014-12-07 Completed University of VACCINE 00:00:00 [facility] TDAP (ADACEL) 2014-12-07 Completed University of VACCINE 00:00:00 [facility] TDAP (ADACEL) 2014-12-07 Completed University of VACCINE 00:00:00 [facility] TDAP (ADACEL) 2014-12-07 Completed University of VACCINE 00:00:00 [facility] Branch TDAP (ADACEL) 2014-12-07 Completed University of VACCINE 00:00:00 [facility] Branch TDAP (ADACEL) 2014-12-07 Completed University of VACCINE 00:00:00 [facility] Branch TDAP (ADACEL) 2014-12-07 Completed University of VACCINE 00:00:00 [facility] Branch TDAP (ADACEL) 2014-12-07 Completed University of VACCINE 00:00:00 [facility] Branch TDAP (ADACEL) 2014-12-07 Completed University of VACCINE 00:00:00 [facility] TDAP (ADACEL) 2014-12-07 Completed University of VACCINE 00:00:00 [facility] Vital Signs Vital Name Observation Time Observation Value Comments Source Systolic blood 2020-05-08 20:35:00 121 mm[Hg] Univer sity of pressure [facility] Diastolic blood 2020-05-08 20:35:00 77 mm[Hg] Unive rsity of pressure [facility] Heart rate 2020-05-08 20:35:00 90 /min Universi ty [facility] Body temperature 2020-05-08 20:35:00 37 [facility] 2020-05-08 20:35:00 16 /min [facility] Body height 2020-05-08 20:35:00 167.6 cm Universi ty [facility] Body weight 2020-05-08 20:35:00 66.792 kg Universi ty [facility] BMI 2020-05-08 20:35:00 23.77 kg/m2 Universi ty [facility] Systolic blood 2020-05-08 20:35:00 121 mm[Hg] Univer sity of pressure [facility] Diastolic blood 2020-05-08 20:35:00 77 mm[Hg] Unive rsity of pressure [facility] Heart rate 2020-05-08 20:35:00 90 /min Universi ty [facility] Body temperature 2020-05-08 20:35:00 37 Yolie Univ ersity of [facility] Respiratory rate 2020-05-08 20:35:00 16 /min Univ ersity of [facility] Body height 2020-05-08 20:35:00 167.6 cm Universi ty of [place] [facility] Body weight 2020-05-08 20:35:00 66.792 kg Universi ty of [place] [facility] BMI 2020-05-08 20:35:00 23.77 kg/m2 Universi ty of [place] [facility] Systolic blood 2019-08-11 15:05:00 128 mm[Hg] Univer sity of pressure [facility] Branch Diastolic blood 2019-08-11 15:05:00 78 mm[Hg] Unive rsity of pressure [facility] Branch Heart rate 2019-08-11 15:05:00 88 /min Universi ty of [place] [facility] Body temperature 2019-08-11 15:05:00 36.78 Yolie Univ ersity of [facility] Respiratory rate 2019-08-11 15:05:00 18 /min Univ ersity of [facility] Body height 2019-08-11 15:05:00 165.1 cm Universi ty of [place] [facility] Body weight 2019-08-11 15:05:00 65.063 kg Universi ty of [place] [facility] BMI 2019-08-11 15:05:00 23.87 kg/m2 Universi ty of [place] [facility] Systolic blood 2019-08-09 19:56:00 137 mm[Hg] Univer sity of pressure [facility] Branch Diastolic blood 2019-08-09 19:56:00 83 mm[Hg] Unive rsity of pressure [facility] Heart rate 2019-08-09 19:56:00 110 /min Universi ty of [place] [facility] Body temperature 2019-08-09 19:56:00 36.89 Yolie Univ ersity of [facility] Respiratory rate 2019-08-09 19:56:00 18 /min Univ ersity of [place] [facility] Body weight 2019-08-09 19:56:00 66.679 kg Universi ty of [place] [facility] BMI 2019-08-09 19:56:00 24.46 kg/m2 Universi ty of [facility] Branch Oxygen saturation in 2019-08-09 19:56:00 100 /min [facility] Arterial blood by [facility] [place] [facility] Pulse oximetry Branch Procedures Procedure Date / Time Performed Performing Clinician Sour e POCT TEST 2020-05-08 20:59:00 Klarissa Vazquez Univer sity of [facility] <14 WEEKS 2019-08-11 16:53:20 Memo [facility] [place] LIMITED [facility] CONSENT/REFUSAL FOR 2019-08-09 19:45:32 [facility]igned[facility] Name [facility] TREATMENT NOTICE OF PRIVACY 2019-08-09 19:45:14 Doctor Unassigned, No Univ ersity of [place] PRACTICES Name [facility] Encounters Start End Encounter Admission Attending Care Care Encounter Source Date/Time Date/Time Type Type Clinicians Facility Department ID 2020-10-16 2020-10-16 Patient Trevon [facility] [id number] 00:00:00 00:00:00 Outreach [facility] [id number] [facility] [id number] PAVILLION [id number] 2020-10-16 2020-10-16 Patient Trevon [facility] [id number] Univers 00:00:00 00:00:00 Outreach [place] PRIMARY [id number] i ty of [facility] [id number] [place] [id number] Ia dical [address] [place] [address] 2020-05-08 2020-05-08 Office Rui [facility] [id number] Univers 15:26:17 16:00:17 Visit Klarissa Viera [employer] [id number] [facility] [id number] Marc as MATERNAL [id number] Med ical & CHILD [address] [place] [address] 2020-05-08 2020-05-08 Office Rui [facility] [id number] 15:26:17 16:00:17 Visit Klarissa Viera [employer] [id number] REGIONAL [id number] MATERNAL [phone] & CHILD [address] [place] [address] 2020-05-08 2020-05-08 Outpatient Aissatou VAZQUEZ [facility] [id number] Univers 14:30:00 14:30:00 KLARISSA [id number] ity [facility] 2020-05-08 2020-05-08 Outpatient Aissatou VAZQUEZ [facility] [id number] Univers 14:30:00 14:30:00 KLARISSA carlos [facility] 2020-05-08 2020-05-08 Telephone [facility] [id number] Univers 00:00:00 00:00:00 Ana Cristina C AIRCRAFT DELIVERY CHECKER [id number] ity of REGIONAL [id number] Marc as MATERNAL [id number] [facility] ical & CHILD [address] [place] [address] 2020-05-08 2020-05-08 Telephone [facility] [id number] 00:00:00 00:00:00 Ana Cristina C AIRCRAFT DELIVERY CHECKER [id number] REGIONAL [id number] MATERNAL [phone] & CHILD [address] [place] [address] 2019-09-15 2019-09-15 Letter [facility] [id number] Univers 00:00:00 00:00:00 (Out) Ana Cristina C AIRCRAFT DELIVERY CHECKER [id number] ity of REGIONAL [id number] Marc as MATERNAL [id number] [facility] ical & CHILD [address] [place] [address] 2019-09-08 2019-09-08 Telephone [facility] [id number] Univers 00:00:00 00:00:00 Ana Cristina C AIRCRAFT DELIVERY CHECKER [id number] ity of REGIONAL [id number] Marc as MATERNAL [phone] [facility] & CHILD [address] [place] [address] 2019-09-02 2019-09-02 Telephone Katelynn Hall [facility] [id number] Univers 00:00:00 00:00:00 [facility] [id number] i [id number] [id number] [place] dical nal [address] [facility] 2019-09-02 2019-09-02 Telephone KAI Garner [id number] Univers 00:00:00 00:00:00 [facility] [id number] i ty of [facility] [id number] [phone] [facility] [address] 2019-08-11 2019-08-11 Routine Trimester, [facility] Res-1st UNIVERSIT [id number] Univers 08:52:08 10:54:31 Logan Miller BRODY [id number] ity of Visit CL[place]ICS [id number] [id number] [facility] [address] 2019-08-09 2019-08-09 Emergency [facility] [id number] Univers 13:58:12 15:59:00 Lisha Chris [id number] i [id number] [id number] [place] [id number] Branch Results Test Description Test Time Test Comments Results Result Comments Source POCT TEST 2020-05-08 20:59:00 Test Item Value Reference Range Interpretation Comme nts POCT PREG (test code = 1605) Negative On board controls acceptable with C Line (test code = 3574) Yes POCT PREG LOT # (test code = 3575) POCT PREG TEST DATE (test code = 3576) [id number] 20:59:00 Test Item Value Reference Range Interpretation Comments POCT PREG (test code = 1605) Negative On board controls acceptable with C Yes Line (test code = 3574) POCT PREG LOT # (test code = 3575) POCT PREG TEST DATE (test code = 3576) [facility]
--- NOTE | 2021-12-22 13:45 | EDPHYS ---
Physician Documentation [facility] Name: Nette Fabian Age: 26 yrs Sex: Female : 1995 Arrival Date: 12/22/2021 Time: 13:28 Bed Waiting Private MD: ED Physician Vicente Jerez HPI: 12/22 13:45 This 26 yrs old Black Female presents to ER via Ambulatory with complaints of Bee Sting.pm1 13:59 The patient was bitten on the right quadriceps, by a bee, for an unknown reason, pm1 outdoors. Onset: The symptoms/episode began/occurred this morning. Secondary to the bite the patient reports pain, swelling. Associated signs and symptoms: Pertinent positives: hives at right Achilles' , Pertinent negatives: fever. 13:59 Severity of symptoms: in the emergency department the symptoms are actually worse. The pm1 patient has not experienced similar symptoms in the past. The patient has not recently seen a physician. 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 - Social history:: Smoking status: Patient denies any tobacco usage or history of. Patient/guardian denies using alcohol. ROS: 13:59 Constitutional: Negative for fever, chills, and weight loss, Cardiovascular: Negative pm1 for chest pain, palpitations, and edema, Respiratory: Negative for shortness of breath, cough, wheezing, and pleuritic chest pain, Abdomen/GI: Negative for abdominal pain, nausea, vomiting, diarrhea, and constipation, MS/Extremity: Negative for injury and deformity. 13:59 Skin: Positive for rash, swelling, of the right leg. 13:59 All other systems are negative. Exam: 13:59 Constitutional: This is a well developed, well nourished patient who is awake, alert, pm1 and in no acute distress. Head/Face: Normocephalic, atraumatic. 13:59 Cardiovascular: Exam negative for acute changes, Rate: normal, Rhythm: regular, Pulses: no pulse deficits are appreciated. 13:59 Respiratory: Exam negative for acute changes, respiratory distress, shortness of breath. 13:59 Musculoskeletal/extremity: Exam is negative for acute changes. 13:59 Skin: Appearance: normal except for affected area, consistent with urticaria, on the right Achilles and right quadriceps. 13:59 Neuro: Exam negative for acute changes, Orientation: is normal, Mentation: is normal, Motor: is normal, moves all fours. Vital Signs: 13:36 BP 139 / 92; Pulse 82; Resp 18; Temp 98.7(TE); Pulse Ox 99% on R/A; Weight 84.37 kg; ld1 Height 5 ft. 7 in. (170.18 cm); Pain 0/10; 13:36 Body Mass Index 29.13 (84.37 kg, 170.18 cm) ld1 MDM: 13:43 Data reviewed: vital signs. Data interpreted: Pulse oximetry: on room air is 99 %. pm1 Interpretation: normal. Counseling: I had a detailed discussion with the patient and/or guardian regarding: the historical points, exam findings, and any diagnostic results supporting the discharge/admit diagnosis, the need for outpatient follow up, to return to the emergency department if symptoms worsen or persist or if there are any questions or concerns that arise at home. 13:45 Patient medically screened. pm1 Administered Medications: No medications were administered Disposition: 17:14 Co-signature as Attending Physician, Vicente Jerez MD I agree with the assessment and kdr plan of care. Disposition Summary: 12/22/21 13:45 Discharge Ordered Location: Home pm1 Problem: new pm1 Symptoms: have improved pm1 Condition: Stable pm1 Diagnosis - Insect bite (nonvenomous), right lower leg pm1 Followup: pm1 - With: Emergency Department - When: As needed - Reason: Worsening of condition Followup: pm1 - With: Private Physician - When: 2 - 3 days - Reason: Recheck today's complaints, Continuance of care, Re-evaluation by your physician Discharge Instructions: - Discharge Summary Sheet pm1 - Bee, Wasp, or Hornet Sting, Adult pm1 Forms: - Medication Reconciliation Form pm1 - Thank You Letter pm1 - Antibiotic Education pm1 - Prescription Opioid Use pm1 Prescriptions: - Benadryl 25 mg Oral Capsule - take 1 capsule by ORAL route every 6 hours As needed; 30 tablet; Refills: 0, pm1 Product Selection Permitted - Pepcid 20 mg Oral Tablet - take 1 tablet by ORAL route every 12 hours for 10 days; 20 tablet; Refills: 0, pm1 Product Selection Permitted - Medrol (Usman) 4 mg Oral Tablets, Dose Pack - take 1 tablet by ORAL route as directed - follow package instructions; 1 pm1 packet; Refills: 0, Product Selection Permitted Signatures: Vicente Jerez MD MD kdr Marinas, Patrick, NP BEVELING AND EDGING MACHINE OPERATOR pm1 Rachael Kraft RN RN ld1
--- NOTE | 2021-12-22 13:45 | ER ---
Nurse's Notes [facility] Name: Nette Fabian Age: 26 yrs Sex: Female : 1995 Arrival Date: 12/22/2021 Time: 13:28 Bed Waiting Private MD: Diagnosis: Insect bite (nonvenomous), right lower leg Presentation: 12/22 13:36 Chief complaint: Patient states: Stung by 5 bees - right thigh. Denies SOB. Developed a ld1 rash on right thigh. Coronavirus screen: At this time, the client does not indicate any symptoms associated with coronavirus-19. Ebola Screen: No symptoms or risks identified at this time. Onset: The symptoms/episode began/occurred suddenly. Anaphylaxis evaluation, no signs or symptoms of anaphylaxis were noted. Initial Sepsis Screen: Does the patient meet any 2 criteria? No. Patient's initial sepsis screen is negative. Does the patient have a suspected source of infection? No. Patient's initial sepsis screen is negative. Risk Assessment: Do you want to hurt yourself or someone else? Patient reports no desire to harm self or others. Onset of symptoms was December 22, 2021. 13:36 Method Of Arrival: Ambulatory ld1 13:36 Acuity: NED 3 ld1 Triage Assessment: 13:37 General: Appears in no apparent distress. comfortable, Behavior is calm, cooperative, ld1 appropriate for age. Pain: Denies pain. EENT: No signs and/or symptoms were reported regarding the EENT system. Neuro: Level of Consciousness is awake, alert, obeys commands, Oriented to person, place, time, situation. Cardiovascular: Capillary refill < 3 seconds Patient's skin is warm and dry. Respiratory: Airway is patent Respiratory effort is even, unlabored, Respiratory pattern is regular, symmetrical. GI: Abdomen is flat, non-distended. 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 - Social history:: Smoking status: Patient denies any tobacco usage or history of. Patient/guardian denies using alcohol. Vital Signs: 13:36 BP 139 / 92; Pulse 82; Resp 18; Temp 98.7(TE); Pulse Ox 99% on R/A; Weight 84.37 kg; ld1 Height 5 ft. 7 in. (170.18 cm); Pain 0/10; 13:36 Body Mass Index 29.13 (84.37 kg, 170.18 cm) ld1 ED Course: 13:28 Patient arrived in ED. ja2 13:31 Sarwat Espinosa PA is PHCP. cp 13:31 Vicente Jerez MD is Attending Physician. cp 13:37 Triage completed. ld1 13:37 Arm band placed on right wrist. EKG completed in triage. Results shown to MD. EKG ld1 completed in triage. Results shown to MD. 13:42 PHCP role handed off by Sarwat Espinosa PA pm1 13:42 Geronimo Flood NP is PHCP. pm1 13:59 Shyann Fabian RN is Primary Nurse. iw Administered Medications: No medications were administered Outcome: 13:45 Discharge ordered by MD. pm1 13:59 Patient left the ED. iw Signatures: Shyann Fabian RN RN iw Sarwat Espinosa PA PA cp Geronimo Flood NP PRODUCT SALES ENGINEER pm1 Rachael Kraft RN RN ld1 Rosy Clements
[2021-12-22 14:05] VITALS: BP 139/92; TEMP 98.7; O2SAT 99
== END 2021-12-22 13:59 | disposition home or self-care (01) ==
LOC: ER 13:24
DX: S70.361A Insect bite (nonvenomous), right thigh, initial encounter (principal)
CPT/HCPCS: 99281

== ENCOUNTER 2024-02-26 11:56 | Emergency (ER) | payer OTHER ==
--- OUTSIDE RECORDS SUMMARY | 2024-02-26 12:01 | XMS REPORT | Continuity of Care Document ---
Author Name Unknown Address [address] [facility] [address] [place] [address] [facility] thconnect Address [address] [facility] 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 Role Phone Pcp, Patient Does Not Have A Primary Care Physic amaury MICHELLE RENO Attending Clinician Unavailable MICHELLE RENO Attending Clinician Unavailable Doctor Unassigned, [place] Attending Clinician U ROB Benítez Attending Clinician Unadago khalil Khushi German BRAVO Attending Clinician [phone] Patel CRAIN, Meenakshi Painter Attending Clinician [phone] Lio Boswell MD Attending Clinician [phone], [facility] Usg Room Attending Clinician Kailee Nascimento MD, Rob Attending Clinician + Leila Nuñez MD Attending Clinician + LEILA NUÑEZ Attending Clinician Joshua khalil 2, [facility] Attending Clinician Unavailable Ultrasound, [facility] Attending Clinician Kailee Kim RN, Maira Escalera Attending Clinician Delmi fields 1, [facility] Room Attending Clinician Delmi Morataya NP, Lorraine Attending Clinician [phone] CAMILLE TAVAREZ Attending Clinician Unavailable Camille Tavarez MD Attending Clinician [phone] LORRAINE ZAVALA Attending Clinician UnavailROBYN Hector Attending Clinician Unavailable ROBYN CORTEZ Attending Clinician Unavailable 1, [facility] Room Attending Clinician UnavailRobyn Hector MD Attending Clinician [phone] PHYLLIS WOODWARD Attending Clinician Unavailable Crissy BURRC, Phyllis Attending Clinician [phone] Lab, Ang - Db Attending Clinician Unavailable Robyn Pinon RN Attending Clinician UnavailPHI Armstrong Attending Clinician Unavailable Josesito Cortez DO Attending Clinician [phone] Essence Lyons Attending Clinician [phone] ESSENCE VAZQUEZ Attending Clinician Unavailcipriano perez Akinsilien WHCNPAna Cristina Attending Clinician + Nidia Shahid Attending Clinician [phone] Trimester, [facility] Res-1st Attending Clinician Unavailable Logan Miller MD Attending Clinician [phone] Lisha Antunez Attending Clinician [phone] CAMILLE TAVAREZ Admitting Clinician Unavailable Michelle Reno MD Admitting Clinician [phone] MICHELLE RENO Admitting Clinician Unavailable Camille Tavarez MD Admitting Clinician [phone] LORRAINE ZAVALA Admitting Clinician Unavailgeronimo anaya Payers Payer Name Policy Type Policy Number Effective Date Expirati on Date Source CIGNA II [id number] 2019 00:00:00 2023 00:00:00 [facility] [id number] 2022 00:00:00 SOFYA STAR [id number] 2023 00:00:00 ERNIEPOINT STAR [id number] 2023 00:00:00 2023 00:00:00 MEDICAID OF [place] [id number] 2023 00:00:00 2023 00:00:00 Problems Condition Name Condition Details Condition Category Status Onset Date Resolution Date Last Treatment Date Treating Clinician Comments Source Obesity (BMI 30-39.9) Obesity (BMI 30-39.9) Disease Active 8-08 00:00: 00 [facility] Seasonal allergies Seasonal allergies Disease Active 8-02 00:00: 00 [facility] , incidental , incidental Disease Active 2017-07 0-25 00:00: 00 [facility] No known active problems No known active problems Disease [facility] Obesity in Obesity in Disease Resolve d 9-20 00:00: 00 2023-09-03 00:00:00 2023-09-03 12:50:02 [facility] Circumvall ate placenta in third trimester Circumvall ate placenta in third trimester Disease Resolve d 9-05 00:00: 00 2023-09-03 00:00:00 2023-09-03 12:50:01 [facility] Headache in , antepartum Headache in , antepartum Disease Resolve d 8-02 00:00: 00 2023-09-03 00:00:00 2023-09-03 12:49:58 [facility] History of miscarriag e, currently History of miscarriag e, currently Disease Resolve d 0 6-13 00:00: 00 2023-09-03 00:00:00 2023-09-03 12:49:56 [facility] Elevated blood pressure reading without diagnosis of hypertensi on Elevated blood pressure reading without diagnosis of hypertensi on Disease Resolve d 0 6-13 00:00: 00 2023-09-03 00:00:00 2023-09-03 12:49:57 [facility] Liveborn infant, of [place] , born in hospital by vaginal delivery Liveborn , of [place] , born in hospital by vaginal delivery Disease Resolve d 0 5-07 00:00: 00 2023-09-03 00:00:00 2023-09-03 12:49:55 [facility] 39 weeks gestation of 39 weeks gestation of Disease Resolve d 0 5-06 00:00: 00 2023-09-03 00:00:00 2023-09-03 12:49:54 [facility] High-risk in third trimester High-risk in third trimester Disease Resolve d 2017-07 0-25 00:00: 00 2023-09-03 00:00:00 2023-09-03 12:49:53 [facility] 23 weeks gestation of 23 weeks gestation of Disease Resolve d 0 9-20 00:00: 00 2023-05-01 00:00:00 2023-05-01 14:54:39 [facility] Pap smear of cervix declined Pap smear of cervix declined Disease Resolve d 8-02 00:00: 00 2023-04-15 00:00:00 2023-04-15 09:43:27 [facility] 9 weeks gestation of 9 weeks gestation of Disease Resolve d 6-13 00:00: 00 2023-04-15 00:00:00 2023-04-15 09:43:50 [facility] Tobacco use in Tobacco use in Disease Resolve d 2017-07 0-25 00:00: 00 2020-05-08 00:00:00 2020-05-08 15:50:58 Overview: Reports quit 06/21/19 [facility] Multiparit y Multiparit y Disease Resolve d 2017-07 0-25 00:00: 00 2020-05-08 00:00:00 2020-05-08 15:51:01 [facility] Screening examinatio n for venereal disease Screening examinatio n for venereal disease Disease Resolve d 2018-0 2-04 00:00: 00 2019-08-08 00:00:00 2019-08-08 09:05:41 [facility] Encounter for elective induction of labor Encounter for elective induction of labor Disease Resolve d 0 5-06 00:00: 00 2019-01-04 00:00:00 2019-01-04 10:20:03 [facility] Positive GBS test Positive GBS test Disease Resolve d 11-29 00:00: 00 2019-01-04 00:00:00 2019-01-04 10:20:03 [facility] Vaginal discharge during in second trimester Vaginal discharge during in second trimester Disease Resolve d 2017-07 00:00: 00 2018-11-29 00:00:00 2018-11-29 15:44:38 [facility] Chlamydia Chlamydia Disease Resolve d 12-09 00:00: 2018-05-20 00:00:00 2018-05-20 16:56:59 [facility] Breakthrou gh bleeding on control pills Breakthrou gh bleeding on control pills Disease Resolve d 12-04 00:00: 00 2018-05-20 00:00:00 2018-05-20 16:57:00 [facility] Ovarian cyst Ovarian cyst Disease Resolve d 08-18 00:00: 00 2018-05-20 00:00:00 2018-05-20 16:57:02 [facility] Contracept anusha management Contracept anusha management Disease Resolve d 2016-07 00:00: 00 2018-05-20 00:00:00 2018-05-20 16:56:55 [facility] BV (bacterial vaginosis) BV (bacterial vaginosis) Disease Resolve d 2016-07 00:00: 00 2018-05-20 00:00:00 2018-05-20 16:57:02 [facility] Tinea cruris Tinea cruris Disease Resolve d 2016-07 00:00: 00 2018-05-20 00:00:00 2018-05-20 16:56:55 [facility] Vomiting Vomiting Disease Resolve d 2016-07 00:00: 00 2018-05-20 00:00:00 2018-05-20 16:56:54 [facility] Allergies, Adverse Reactions, Alerts Allergy Name Allergy Type Status Severity Reaction(s) Onset Date Inactive Date Treating Clinician Comments Source NO KNOWN ALLERGIE S Drug Class Active [facility] Social History Social Habit Start Date Stop Date Quantity Comments Source ASSERTION 2022-11-13 00:00:00 [facility] Gender identity [facility] Sexual orientation [facility] Alcoholic beverage intake 2023-09-03 00:00:00 2023-09-03 00:00:00 Ex-drinker (finding) [facility] Alcohol intake 2023-09-03 00:00:00 2023-09-03 00:00:00 Ex-drinker (finding) [facility] Exposure to SARS-CoV-2 (event) 2022-12-07 00:00:00 2022-12-17 10:27:00 Not sure [facility] Tobacco use and exposure 2022-12-08 00:00:00 2022-12-08 00:00:00 Smokeless tobacco non-user [facility] Tobacco Comment 2022-12-08 00:00:00 2022-12-08 00:00:00 2 cigarettes/day [facility] History of Social function 2020-02-29 00:00:00 2020-02-29 00:00:00 [facility] History of tobacco use 2009-07-09 00:00:00 2019-06-21 00:00:00 Cigarette Smoker [facility] Sex assigned at 1995 00:00:00 1995 00:00:00 [facility] Smoking Status Start Date Stop Date Source Ex-smoker 2022-12-08 00:00:00 2022-12-08 00:00:00 [facility] Medications Ordered Medication Name Filled Medication Name Start Date Stop Date Current Medication? Ordering Clinician Indication Dosage Frequency Signature (SIG) Comments Components Source vit no.124/iron /folic ( VITAMIN ORAL) 08-05 07:49: 08 08-05 00:00 :00 No Take by mouth. [facility] rho(D) immune globulin (RHOGAM) syringe 300 mcg 08-05 00:57: 24 Yes 300ug 300 mcg, Intramuscu lar, ONCE, For 1 dose, Conditiona l, Routine [facility] witang Samson (TUCKS) 50 % topical pad 08-05 00:57: 17 Yes Topical, Q4HPRN, Starting on 1/9/24 at 1857, Until Discontinu ed, Routine, rectal/hem orrhoidal pain [facility] HYDROcodone -acetaminop hen (NORCO 5) 5-325 mg tablet 1 tablet 08-05 00:57: 17 Yes 1{tbl} 1 tablet, Oral, Q6HPRN, Starting on Thu08/04/23 at 1857, Until Discontinu ed, Routine, Pain (scale 7-10) [facility] ibuprofen (IBU) tablet 600 mg 08-05 00:57: 17 Yes 600mg 600 mg, Oral, Q6HPRN, Starting on Thu08/04/23 at 185, Until Discontinu ed, Routine, Pain (scale 4-6) [facility] acetaminoph en (TYLENOL) tablet 650 mg 08-05 00:57: 17 Yes 650mg 650 mg, Oral, Q6HPRN, Starting on Thu08/04/23 at 185, Until Discontinu ed, Routine, Pain (scale 1-3) [facility] diphenhydrA MINE (BENADRYL) tablet 25 mg 08-05 00:57: 17 Yes 25mg 25 mg, Oral, Q6HPRN, Starting on Thu08/04/23 at 1857, Until Discontinu ed, Routine, Sleep, Itching [facility] ondansetron (ZOFRAN (PF)) injection 4 mg 08-05 00:57: 17 Yes 4mg 4 mg, Slow IV Push, Q8HPRN, Starting on Thu08/04/23 at 1857, Until Discontinu ed, Routine, Nausea and Vomiting (N/V) [facility] simethicone (GAS RELIEF (SIMETHICON E)) chewable tablet 160 mg 08-05 00:57: 17 Yes 160mg 160 mg, Oral, PC+HSPRN, Starting on Thu08/04/23 at 1857, Until Discontinu ed, Routine, Gas [facility] docusate (COLACE) capsule 200 mg 08-05 00:57: 17 Yes 200mg 200 mg, Oral, QDAILYPRN, Starting on Thu08/04/23 at 1857, Until Discontinu ed, Routine, Constipati on [facility] magnesium hydroxide (MILK OF MAGNESIA) 400 mg/5 mL suspension 30 mL 08-05 00:57: 17 Yes 30mL 30 mL, Oral, QDAILYPRN, Starting on Thu08/04/23 at 1857, Until Discontinu ed, Routine, Constipati on [facility] benzocaine- menthol (DERMOPLAST ) 20-0.5 % topical spray 08-05 00:57: 17 Yes Topical, PRN, Starting on Thu08/04/23 at 1857, Until Discontinu ed, Routine, Perineum discomfort [facility] vitamin w/FA tablet 08-05 00:00: 00 Yes [id number] 1{tbl} Take 1 tablet by mouth in the morning. [facility] docusate 100 mg capsule 08-05 00:00: 00 Yes [id number] 200mg Take 2 capsules by mouth once daily as needed for Constipati on. [facility] ferrous sulfate 325 mg (65 mg iron) tablet 08-05 00:00: 00 Yes [id number] 325mg Take 1 tablet by mouth in the morning and 1 tablet in the evening. [facility] ibuprofen 600 mg tablet 08-05 00:00: 00 Yes [id number] 600mg Take 1 tablet by mouth every 6 (six) hours as needed (Pain). Take with food or milk. [facility] oxytocin (PITOCIN) 30 units in NS 500 mL IV infusion 08-04 23:47: 42 08-05 00:57 :23 No 300mL/h 300 mL/hr, IV Infusion, SEE-INSTRU CTIONS, Starting on Thu08/04/[address] at 300 mL/hr for 1 hr then 150 mL/hr for 1 hr. For post delivery uterotonic .
[facility] acetaminoph en (TYLENOL) tablet 650 mg 08-04 22:02: 20 08-05 00:57 :23 No 650mg 650 mg, Oral, Q6HPRN, Starting on Thu08/04/23 at 1602, Until Thu08/04/23 at 1857, Routine, Headache [facility] vit no.124/iron /folic ( VITAMIN ORAL) 08-04 17:49: 17 Yes Take by mouth. [facility] fentaNYL-ro pivacaine 2 mcg/mL-0.1 % (PF) in NS 200 mL epidural infusion RTU 08-04 14:42: 00 08-05 00:42 :52 No Epidural, CONTINUOUS PRN, Starting on Thu08/04/23 at 0842, Until Discontinu ed, Routine, Intra-op [facility] lidocaine-e pinephrine (XYLOCAINE W/EPINEPHRI NE) 1.5 %-1:200,000 injection 08-04 14:33: 00 08-05 00:42 :52 No Intraderma l, ONCE INTRA PROCEDURE, Starting on Thu08/04/23 at 0833, Until Discontinu ed, Routine, Intra-op [facility] lactated ringers IV infusion 500 mL 08-04 10:15: 00 08-04 13:52 :00 No 500mL at 999 mL/hr, 500 mL, IV Infusion, ONCE, 1 dose, On Thu08/04/23 at 0415, Routine [facility] ondansetron (ZOFRAN (PF)) injection 4 mg 08-04 10:00: 22 08-05 00:57 :23 No 4mg 4 mg, Slow IV Push, Q8HPRN, Nausea and Vomiting (N/V), Starting on Thu08/04/23 at 0400
Do ses of ondansetro n 16 mg and above need to be administer ed via IV piggyback. For Dose >=24mg ECG monitoring is advisable.
[facility] oxytocin (PITOCIN) 30 units in NS 500 mL IV infusion 08-04 10:00: 22 08-05 00:57 :23 No 2mU/min at 2-40 mL/hr, IV Infusion, TITRATE, Starting on Thu08/04/23 at 0400, Until Thu08/04/23 at 1857, LENA [facility] D5W-LR IV infusion 1,000 mL 08-04 10:00: 22 08-05 00:57 :22 No 1000mL at 1-125 mL/hr, IV Infusion, TITRATE, Starting on Thu08/04/23 at 0400, Until Thu08/04/23 at 1857, Routine [facility] methylergon ovine (METHERGINE ) injection 0.2 mg 08-04 10:00: 22 08-04 23:43 :00 No .2mg 0.2 mg, Intramuscu lar, Q4HPRN, 1 dose, Starting on Thu08/04/23 at 0400, Until Discontinu ed, Routine, PPH [facility] vit no.124/iron /folic ( VITAMIN ORAL) 2022-07 16:06: 39 Yes Take by mouth. [facility] lactated ringers IV infusion 500 mL 04-15 17:00: 00 04-15 16:25 :54 No 500mL at 999 mL/hr, 500 mL, IV Infusion, ONCE, 1 dose, On Thu04/15/23 at 1200, Routine [facility] vit no.124/iron /folic ( VITAMIN ORAL) 04-15 12:51: 25 Yes Take by mouth. [facility] aspirin 81 mg EC tablet 04-15 00:00: 00 08-05 00:00 :00 No [id number] 81mg Take 1 tablet by mouth in the morning. [facility] loratadine 10 mg tablet 02-03 00:00: 00 08-05 00:00 :00 No [id number] 10mg Take 1 tablet by mouth in the morning. [facility] magnesium oxide 400 mg (241.3 mg magnesium) tablet 02-03 00:00: 00 08-05 00:00 :00 No [id number] 400mg Take 1 tablet by mouth in the morning. [facility] vit no.124/iron /folic ( VITAMIN ORAL) 01-06 10:20: 09 Yes Take by mouth. [facility] vit/iron fum/folic ac ( 1 + 1 ORAL) 2019-07 20:50: 50 05-08 00:00 :00 No Take by mouth. [facility] miSOPROStol (CYTOTEC) tablet 800 mcg 08-11 16:45: 00 08-11 15:53 :00 No [id number] 800ug [facility] ibuprofen (IBU) tablet 800 mg 08-11 16:45: 00 08-11 15:53 :00 No [id number] 800mg [facility] ibuprofen 600 mg tablet 08-11 00:00: 00 05-08 00:00 :00 No [id number] 600mg Take 1 tablet by mouth every 6 (six) hours as needed (for pain). [facility] HYDROcodone -acetaminop hen 5-325 mg tablet 08-11 00:00: 00 05-08 00:00 :00 No [id number] 1{tbl} Take 1 tablet by mouth every 6 (six) hours as needed (for pain). [facility] vit/iron fum/folic ac ( 1 + 1 ORAL) 08-08 14:55: 22 Yes Take by mouth. [facility] PNV 67-iron ps-folate no.1-dha (VITAFOL ULTRA) 29 mg iron- 1 mg-200 mg Cap 08-08 00:00: 00 05-08 00:00 :00 No [id number] 1{each} Take 1 Each by mouth daily. [facility] norgestimat e-ethinyl estradiol 0.25-35 mg-mcg per tablet 01-05 00:00: 00 05-08 00:00 :00 No [id number] 1{tbl} Take 1 tablet by mouth daily. [facility] ibuprofen 600 mg tablet 12-01 00:00: 00 05-08 00:00 :00 No [id number] 102 600mg Take 1 tablet by mouth every 6 (six) hours as needed for Pain (scale 1-3) or Pain (scale 4-6) (Pain). Take with food or milk. [facility] No known medications No [facility] No known medications No [facility] Immunizations Ordered Immunization Name Filled Immunization Name Date Status Comments Source [facility] 2018-09-20 00:00:00 Completed [facility] Influenza Virus Vaccine Quad .5 mL IM 6+ MO 2018-09-20 00:00:00 Completed [facility] TDAP 2018-09-20 00:00:00 Completed [facility] Influenza Virus Vaccine Quad .5 mL IM 6+ MO 2018-09-20 00:00:00 Completed [facility] TDAP 2018-09-20 00:00:00 Completed [facility] Influenza Virus Vaccine Quad .5 mL IM 6+ MO 2018-09-20 00:00:00 Completed [facility] TDAP 2018-09-20 00:00:00 Completed [facility] Influenza Virus Vaccine Quad .5 mL IM 6+ MO 2018-09-20 00:00:00 Completed [facility] TDAP 2018-09-20 00:00:00 Completed [facility] Influenza Virus Vaccine Quad .5 mL IM 6+ MO 2018-09-20 00:00:00 Completed [facility] TDAP 2018-09-20 00:00:00 Completed [facility] Influenza Virus Vaccine Quad .5 mL IM 6+ MO 2018-09-20 00:00:00 Completed [facility] TDAP 2018-09-20 00:00:00 Completed [facility] Influenza Virus Vaccine Quad .5 mL IM 6+ MO 2018-09-20 00:00:00 Completed [facility] TDAP 2018-09-20 00:00:00 Completed [facility] Influenza Virus Vaccine Quad .5 mL IM 6+ MO 2018-09-20 00:00:00 Completed [facility] TDAP 2018-09-20 00:00:00 Completed [facility] Influenza Virus Vaccine Quad .5 mL IM 6+ MO 2018-09-20 00:00:00 Completed [facility] TDAP 2018-09-20 00:00:00 Completed [facility] Influenza Virus Vaccine Quad .5 mL IM 6+ MO 2018-09-20 00:00:00 Completed [facility] Tdap 2018-09-20 00:00:00 Completed [facility] TDAP 2018-09-20 00:00:00 Completed [facility] Influenza Virus Vaccine Quad .5 mL IM 6+ MO 2018-09-20 00:00:00 Completed [facility] Influenza Virus Vaccine Quad .5 mL IM 6+ MO 2018-09-20 00:00:00 Completed [facility] TDAP 2018-09-20 00:00:00 Completed [facility] Influenza Virus Vaccine Quad .5 mL IM 6+ MO (FLUZONE/FLULAVAL/F LUARIX) 2018-09-20 00:00:00 Completed [facility] TDAP 2018-09-20 00:00:00 Completed [facility] Influenza Virus Vaccine Quad .5 mL IM 6+ MO (FLUZONE/FLULAVAL/F LUARIX) 2018-09-20 00:00:00 Completed [facility] TDAP 2018-09-20 00:00:00 Completed [facility] Influenza Virus Vaccine Quad .5 mL IM 6+ MO (FLUZONE/FLULAVAL/F LUARIX) 2018-09-20 00:00:00 Completed [facility] Tdap 2018-09-20 00:00:00 Completed [facility] Influenza Virus Vaccine Quad .5 mL IM 6+ MO 2018-09-20 00:00:00 Completed [facility] Tdap 2018-09-20 00:00:00 Completed [facility] Influenza Virus Vaccine Quad .5 mL IM 6+ MO 2018-09-20 00:00:00 Completed [facility] Tdap 2018-09-20 00:00:00 Completed [facility] Influenza Virus Vaccine Quad .5 mL IM 6+ MO 2018-09-20 00:00:00 Completed [facility] Tdap 2018-09-20 00:00:00 Completed [facility] Influenza Virus Vaccine Quad .5 mL IM 6+ MO 2018-09-20 00:00:00 Completed [facility] Tdap 2018-09-20 00:00:00 Completed [facility] Influenza Virus Vaccine Quad .5 mL IM 6+ MO 2018-09-20 00:00:00 Completed [facility] Tdap 2018-09-20 00:00:00 Completed [facility] Influenza Virus Vaccine Quad .5 mL IM 6+ MO 2018-09-20 00:00:00 Completed [facility] TDAP 2018-09-20 00:00:00 Completed [facility] Influenza Virus Vaccine Quad .5 mL IM 6+ MO 2018-09-20 00:00:00 Completed [facility] TDAP 2018-09-20 00:00:00 Completed [facility] Influenza Virus Vaccine Quad .5 mL IM 6+ MO 2018-09-20 00:00:00 Completed [facility] Tdap 2018-09-20 00:00:00 Completed [facility] TDAP 2018-09-20 00:00:00 Completed [facility] Influenza Virus Vaccine Quad .5 mL IM 6+ MO 2018-09-20 00:00:00 Completed [facility] Influenza Virus Vaccine Quad .5 mL IM 6+ MO 2018-09-20 00:00:00 Completed [facility] TDAP 2018-09-20 00:00:00 Completed [facility] Influenza Virus Vaccine Quad .5 mL IM 6+ MO 2018-09-20 00:00:00 Completed [facility] TDAP 2018-09-20 00:00:00 Completed [facility] Influenza Virus Vaccine Quad .5 mL IM 6+ MO 2018-09-20 00:00:00 Completed [facility] TDAP 2018-09-20 00:00:00 Completed [facility] Influenza Virus Vaccine Quad .5 mL IM 6+ MO 2018-09-20 00:00:00 Completed [facility] TDAP 2018-09-20 00:00:00 Completed [facility] Influenza Virus Vaccine Quad .5 mL IM 6+ MO 2018-09-20 00:00:00 Completed [facility] TDAP 2018-09-20 00:00:00 Completed [facility] Influenza Virus Vaccine Quad .5 mL IM 6+ MO 2018-09-20 00:00:00 Completed [facility] TDAP 2018-09-20 00:00:00 Completed [facility] Influenza Virus Vaccine Quad .5 mL IM 6+ MO 2018-09-20 00:00:00 Completed [facility] TDAP 2018-09-20 00:00:00 Completed [facility] Influenza Virus Vaccine Quad .5 mL IM 6+ MO 2018-09-20 00:00:00 Completed [facility] TDAP 2018-09-20 00:00:00 Completed [facility] Influenza Virus Vaccine Quad .5 mL IM 6+ MO 2018-09-20 00:00:00 Completed [facility] HPV9 2017-07-09 00:00:00 Completed [facility] HPV9 2017-07-09 00:00:00 Completed [facility] HPV9 2017-07-09 00:00:00 Completed [facility] HPV9 2017-07-09 00:00:00 Completed [facility] HPV9 2017-07-09 00:00:00 Completed [facility] HPV9 2017-07-09 00:00:00 Completed [facility] HPV9 2017-07-09 00:00:00 Completed [facility] HPV9 2017-07-09 00:00:00 Completed [facility] HPV9 2017-07-09 00:00:00 Completed [facility] HPV9 2017-07-09 00:00:00 Completed [facility] HPV9 2017-07-09 00:00:00 Completed [facility] HPV9 2017-07-09 00:00:00 Completed [facility] HPV9 2017-07-09 00:00:00 Completed [facility] HPV9 2017-07-09 00:00:00 Completed [facility] HPV9 2017-07-09 00:00:00 Completed [facility] HPV9 2017-07-09 00:00:00 Completed [facility] HPV9 2017-07-09 00:00:00 Completed [facility] HPV9 2017-07-09 00:00:00 Completed [facility] HPV9 2017-07-09 00:00:00 Completed [facility] HPV9 2017-07-09 00:00:00 Completed [facility] [facility] HPV9 2017-07-09 00:00:00 Completed [facility] HPV9 2017-07-09 00:00:00 Completed [facility] HPV9 2017-07-09 00:00:00 Completed [facility] HPV9 2017-07-09 00:00:00 Completed [facility] HPV9 2017-07-09 00:00:00 Completed [facility] HPV9 2017-07-09 00:00:00 Completed [facility] HPV9 2017-07-09 00:00:00 Completed [facility] HPV9 2017-07-09 00:00:00 Completed [facility] HPV9 2017-07-09 00:00:00 Completed [facility] HPV9 2017-07-09 00:00:00 Completed [facility] HPV9 2017-07-09 00:00:00 Completed [facility] HPV9 2017-07-09 00:00:00 Completed [facility] HPV9 2017-07-09 00:00:00 Completed [facility] TDAP (ADACEL) VACCINE 2014-12-07 00:00:00 Completed [facility] TDAP (ADACEL) VACCINE 2014-12-07 00:00:00 Completed [facility] TDAP (ADACEL) VACCINE 2014-12-07 00:00:00 Completed [facility] TDAP (ADACEL) VACCINE 2014-12-07 00:00:00 Completed [facility] TDAP (ADACEL) VACCINE 2014-12-07 00:00:00 Completed [facility] TDAP (ADACEL) VACCINE 2014-12-07 00:00:00 Completed [facility] TDAP (ADACEL) VACCINE 2014-12-07 00:00:00 Completed [facility] TDAP (ADACEL) VACCINE 2014-12-07 00:00:00 Completed [facility] TDAP (ADACEL) VACCINE 2014-12-07 00:00:00 Completed [facility] TDAP (ADACEL) VACCINE 2014-12-07 00:00:00 Completed [facility] TDAP (ADACEL) VACCINE 2014-12-07 00:00:00 Completed [facility] TDAP (ADACEL) VACCINE 2014-12-07 00:00:00 Completed [facility] TDAP (ADACEL) VACCINE 2014-12-07 00:00:00 Completed [facility] TDAP (ADACEL) VACCINE 2014-12-07 00:00:00 Completed [facility] TDAP (ADACEL) VACCINE 2014-12-07 00:00:00 Completed [facility] TDAP (ADACEL) VACCINE 2014-12-07 00:00:00 Completed [facility] TDAP (ADACEL) VACCINE 2014-12-07 00:00:00 Completed [facility] TDAP (ADACEL) VACCINE 2014-12-07 00:00:00 Completed [facility] TDAP (ADACEL) VACCINE 2014-12-07 00:00:00 Completed [facility] TDAP (ADACEL) VACCINE 2014-12-07 00:00:00 Completed [facility] TDAP (ADACEL) VACCINE 2014-12-07 00:00:00 Completed [facility] TDAP (ADACEL) VACCINE 2014-12-07 00:00:00 Completed [facility] TDAP (ADACEL) VACCINE 2014-12-07 00:00:00 Completed [facility] TDAP (ADACEL) VACCINE 2014-12-07 00:00:00 Completed [facility] TDAP (ADACEL) VACCINE 2014-12-07 00:00:00 Completed [facility] TDAP (ADACEL) VACCINE 2014-12-07 00:00:00 Completed [facility] TDAP (ADACEL) VACCINE 2014-12-07 00:00:00 Completed [facility] TDAP (ADACEL) VACCINE 2014-12-07 00:00:00 Completed [facility] TDAP (ADACEL) VACCINE 2014-12-07 00:00:00 Completed [facility] TDAP (ADACEL) VACCINE 2014-12-07 00:00:00 Completed [facility] TDAP (ADACEL) VACCINE 2014-12-07 00:00:00 Completed [facility] TDAP (ADACEL) VACCINE 2014-12-07 00:00:00 Completed [facility] TDAP (ADACEL) VACCINE 2014-12-07 00:00:00 Completed [facility] Influenza Virus Vaccine Quad .5 mL IM 6+ MO (FLUZONE/FLULAVAL/F LUARIX) Unknown Completed [facility] TDAP (ADACEL) VACCINE Unknown Completed [facility] HPV9 Unknown Completed [facility] TDAP Unknown Completed [facility] Influenza Virus Vaccine Quad .5 mL IM 6+ MO (FLUZONE/FLULAVAL/F LUARIX) Unknown Completed [facility] TDAP (ADACEL) VACCINE Unknown Completed [facility] HPV9 Unknown Completed [facility] TDAP Unknown Completed [facility] Influenza Virus Vaccine Quad .5 mL IM 6+ MO (FLUZONE/FLULAVAL/F LUARIX) Unknown Completed [facility] TDAP (ADACEL) VACCINE Unknown Completed [facility] HPV9 Unknown Completed [facility] TDAP Unknown Completed [facility] Influenza Virus Vaccine Quad .5 mL IM 6+ MO (FLUZONE/FLULAVAL/F LUARIX) Unknown Completed [facility] TDAP (ADACEL) VACCINE Unknown Completed [facility] HPV9 Unknown Completed [facility] TDAP Unknown Completed [facility] Influenza Virus Vaccine Quad .5 mL IM 6+ MO (FLUZONE/FLULAVAL/F LUARIX) Unknown Completed [facility] TDAP (ADACEL) VACCINE Unknown Completed [facility] HPV9 Unknown Completed [facility] TDAP Unknown Completed [facility] Influenza Virus Vaccine Quad .5 mL IM 6+ MO (FLUZONE/FLULAVAL/F LUARIX) Unknown Completed [facility] TDAP (ADACEL) VACCINE Unknown Completed [facility] HPV9 Unknown Completed [facility] TDAP Unknown Completed [facility] Influenza Virus Vaccine Quad .5 mL IM 6+ MO (FLUZONE/FLULAVAL/F LUARIX) Unknown Completed [facility] TDAP (ADACEL) VACCINE Unknown Completed [facility] HPV9 Unknown Completed [facility] TDAP Unknown Completed [facility] Influenza Virus Vaccine Quad .5 mL IM 6+ MO (FLUZONE/FLULAVAL/F LUARIX) Unknown Completed [facility] TDAP (ADACEL) VACCINE Unknown Completed [facility] HPV9 Unknown Completed [facility] TDAP Unknown Completed [facility] Influenza Virus Vaccine Quad .5 mL IM 6+ MO (FLUZONE/FLULAVAL/F LUARIX) Unknown Completed [facility] TDAP (ADACEL) VACCINE Unknown Completed [facility] HPV9 Unknown Completed [facility] TDAP Unknown Completed [facility] Influenza Virus Vaccine Quad .5 mL IM 6+ MO (FLUZONE/FLULAVAL/F LUARIX) Unknown Completed [facility] TDAP (ADACEL) VACCINE Unknown Completed [facility] HPV9 Unknown Completed [facility] TDAP Unknown Completed [facility] Influenza Virus Vaccine Quad .5 mL IM 6+ MO (FLUZONE/FLULAVAL/F LUARIX) Unknown Completed [facility] TDAP (ADACEL) VACCINE Unknown Completed [facility] HPV9 Unknown Completed [facility] TDAP Unknown Completed [facility] Influenza Virus Vaccine Quad .5 mL IM 6+ MO (FLUZONE/FLULAVAL/F LUARIX) Unknown Completed [facility] TDAP (ADACEL) VACCINE Unknown Completed [facility] HPV9 Unknown Completed [facility] TDAP Unknown Completed [facility] Influenza Virus Vaccine Quad .5 mL IM 6+ MO (FLUZONE/FLULAVAL/F LUARIX) Unknown Completed [facility] TDAP (ADACEL) VACCINE Unknown Completed [facility] HPV9 Unknown Completed [facility] TDAP Unknown Completed [facility] Influenza Virus Vaccine Quad .5 mL IM 6+ MO (FLUZONE/FLULAVAL/F LUARIX) Unknown Completed [facility] TDAP (ADACEL) VACCINE Unknown Completed [facility] HPV9 Unknown Completed [facility] TDAP Unknown Completed [facility] Influenza Virus Vaccine Quad .5 mL IM 6+ MO (FLUZONE/FLULAVAL/F LUARIX) Unknown Completed [facility] TDAP (ADACEL) VACCINE Unknown Completed [facility] HPV9 Unknown Completed [facility] TDAP Unknown Completed [facility] Influenza Virus Vaccine Quad .5 mL IM 6+ MO (FLUZONE/FLULAVAL/F LUARIX) Unknown Completed [facility] TDAP (ADACEL) VACCINE Unknown Completed [facility] HPV9 Unknown Completed [facility] TDAP Unknown Completed [facility] Influenza Virus Vaccine Quad .5 mL IM 6+ MO (FLUZONE/FLULAVAL/F LUARIX) Unknown Completed [facility] TDAP (ADACEL) VACCINE Unknown Completed [facility] HPV9 Unknown Completed [facility] TDAP Unknown Completed [facility] Influenza Virus Vaccine Quad .5 mL IM 6+ MO (FLUZONE/FLULAVAL/F LUARIX) Unknown Completed [facility] TDAP (ADACEL) VACCINE Unknown Completed [facility] HPV9 Unknown Completed [facility] TDAP Unknown Completed [facility] Influenza Virus Vaccine Quad .5 mL IM 6+ MO (FLUZONE/FLULAVAL/F LUARIX) Unknown Completed [facility] TDAP (ADACEL) VACCINE Unknown Completed [facility] HPV9 Unknown Completed [facility] TDAP Unknown Completed [facility] Influenza Virus Vaccine Quad .5 mL IM 6+ MO (FLUZONE/FLULAVAL/F LUARIX) Unknown Completed [facility] TDAP (ADACEL) VACCINE Unknown Completed [facility] HPV9 Unknown Completed [facility] TDAP Unknown Completed [facility] Influenza Virus Vaccine Quad .5 mL IM 6+ MO (FLUZONE/FLULAVAL/F LUARIX) Unknown Completed [facility] TDAP (ADACEL) VACCINE Unknown Completed [facility] HPV9 Unknown Completed [facility] TDAP Unknown Completed [facility] Influenza Virus Vaccine Quad .5 mL IM 6+ MO (FLUZONE/FLULAVAL/F LUARIX) Unknown Completed [facility] TDAP (ADACEL) VACCINE Unknown Completed [facility] HPV9 Unknown Completed [facility] TDAP Unknown Completed [facility] Influenza Virus Vaccine Quad .5 mL IM 6+ MO (FLUZONE/FLULAVAL/F LUARIX) Unknown Completed [facility] TDAP (ADACEL) VACCINE Unknown Completed [facility] HPV9 Unknown Completed [facility] TDAP Unknown Completed [facility] Influenza Virus Vaccine Quad .5 mL IM 6+ MO (FLUZONE/FLULAVAL/F LUARIX) Unknown Completed [facility] TDAP (ADACEL) VACCINE Unknown Completed [facility] HPV9 Unknown Completed [facility] TDAP Unknown Completed [facility] Influenza Virus Vaccine Quad .5 mL IM 6+ MO (FLUZONE/FLULAVAL/F LUARIX) Unknown Completed [facility] TDAP (ADACEL) VACCINE Unknown Completed [facility] HPV9 Unknown Completed [facility] TDAP Unknown Completed [facility] Influenza Virus Vaccine Quad .5 mL IM 6+ MO (FLUZONE/FLULAVAL/F LUARIX) Unknown Completed [facility] TDAP (ADACEL) VACCINE Unknown Completed [facility] HPV9 Unknown Completed [facility] TDAP Unknown Completed [facility] Influenza Virus Vaccine Quad .5 mL IM 6+ MO (FLUZONE/FLULAVAL/F LUARIX) Unknown Completed [facility] TDAP (ADACEL) VACCINE Unknown Completed [facility] HPV9 Unknown Completed [facility] TDAP Unknown Completed [facility] Influenza Virus Vaccine Quad .5 mL IM 6+ MO (FLUZONE/FLULAVAL/F LUARIX) Unknown Completed [facility] TDAP (ADACEL) VACCINE Unknown Completed [facility] HPV9 Unknown Completed [facility] TDAP Unknown Completed [facility] Influenza Virus Vaccine Quad .5 mL IM 6+ MO (FLUZONE/FLULAVAL/F LUARIX) Unknown Completed [facility] TDAP (ADACEL) VACCINE Unknown Completed [facility] HPV9 Unknown Completed [facility] TDAP Unknown Completed [facility] Influenza Virus Vaccine Quad .5 mL IM 6+ MO (FLUZONE/FLULAVAL/F LUARIX) Unknown Completed [facility] TDAP (ADACEL) VACCINE Unknown Completed [facility] HPV9 Unknown Completed [facility] TDAP Unknown Completed [facility] Influenza Virus Vaccine Quad .5 mL IM 6+ MO (FLUZONE/FLULAVAL/F LUARIX) Unknown Completed [facility] TDAP (ADACEL) VACCINE Unknown Completed [facility] HPV9 Unknown Completed [facility] TDAP Unknown Completed [facility] Influenza Virus Vaccine Quad .5 mL IM 6+ MO (FLUZONE/FLULAVAL/F LUARIX) Unknown Completed [facility] TDAP (ADACEL) VACCINE Unknown Completed [facility] HPV9 Unknown Completed [facility] TDAP Unknown Completed [facility] Influenza Virus Vaccine Quad .5 mL IM 6+ MO (FLUZONE/FLULAVAL/F LUARIX) Unknown Completed [facility] TDAP (ADACEL) VACCINE Unknown Completed [facility] HPV9 Unknown Completed [facility] TDAP Unknown Completed [facility] Influenza Virus Vaccine Quad .5 mL IM 6+ MO (FLUZONE/FLULAVAL/F LUARIX) Unknown Completed [facility] TDAP (ADACEL) VACCINE Unknown Completed [facility] HPV9 Unknown Completed [facility] TDAP Unknown Completed [facility] Influenza Virus Vaccine Quad .5 mL IM 6+ MO (FLUZONE/FLULAVAL/F LUARIX) Unknown Completed [facility] TDAP (ADACEL) VACCINE Unknown Completed [facility] HPV9 Unknown Completed [facility] TDAP Unknown Completed [facility] Influenza Virus Vaccine Quad .5 mL IM 6+ MO (FLUZONE/FLULAVAL/F LUARIX) Unknown Completed [facility] TDAP (ADACEL) VACCINE Unknown Completed [facility] HPV9 Unknown Completed [facility] TDAP Unknown Completed [facility] Influenza Virus Vaccine Quad .5 mL IM 6+ MO (FLUZONE/FLULAVAL/F LUARIX) Unknown Completed [facility] TDAP (ADACEL) VACCINE Unknown Completed [facility] HPV9 Unknown Completed [facility] TDAP Unknown Completed [facility] Influenza Virus Vaccine Quad .5 mL IM 6+ MO (FLUZONE/FLULAVAL/F LUARIX) Unknown Completed [facility] TDAP (ADACEL) VACCINE Unknown Completed [facility] HPV9 Unknown Completed [facility] TDAP Unknown Completed [facility] Influenza Virus Vaccine Quad .5 mL IM 6+ MO (FLUZONE/FLULAVAL/F LUARIX) Unknown Completed [facility] TDAP (ADACEL) VACCINE Unknown Completed [facility] HPV9 Unknown Completed [facility] TDAP Unknown Completed [facility] Vital Signs Vital Name Observation Time Observation Value Comments S marisabel Systolic blood pressure 2023-09-03 17:29:00 128 mm[Hg] [facility] Diastolic blood pressure 2023-09-03 17:29:00 87 mm[Hg] [facility] Heart rate 2023-09-03 17:29:00 76 /min [facility] Body temperature 2023-09-03 17:29:00 36.44 Yolie [facility] Body height 2023-09-03 17:29:00 168.9 cm [facility] Body weight 2023-09-03 17:29:00 87.635 kg [facility] BMI 2023-09-03 17:29:00 30.72 kg/m2 [facility] Systolic blood pressure 2023-08-05 21:22:00 112 mm[Hg] [facility] Diastolic blood pressure 2023-08-05 21:22:00 62 mm[Hg] [facility] Body temperature 2023-08-05 21:22:00 36.89 Yolie [facility] Respiratory rate 2023-08-05 21:22:00 16 /min [facility] Oxygen saturation in Arterial blood by Pulse oximetry 2023-08-05 21:22:00 100 /min [facility] Heart rate 2023-08-05 17:00:00 102 /min [facility] Body height 2023-08-04 10:17:00 168.9 cm [facility] Body weight 2023-08-04 10:17:00 96.707 kg [facility] BMI 2023-08-04 10:17:00 33.90 kg/m2 [facility] Systolic blood pressure 2023-07-29 16:00:00 116 mm[Hg] [facility] Diastolic blood pressure 2023-07-29 16:00:00 71 mm[Hg] [facility] Heart rate 2023-07-29 16:00:00 87 /min [facility] Body temperature 2023-07-29 16:00:00 36.28 Yolie [facility] Body height 2023-07-29 16:00:00 170.2 cm [facility] Body weight 2023-07-29 16:00:00 94.892 kg [facility] BMI 2023-07-29 16:00:00 32.77 kg/m2 [facility] Systolic blood pressure 2023-07-23 19:05:00 115 mm[Hg] [facility] Diastolic blood pressure 2023-07-23 19:05:00 72 mm[Hg] [facility] Heart rate 2023-07-23 19:05:00 90 /min [facility] Body temperature 2023-07-23 19:05:00 36.28 Yolie [facility] Body height 2023-07-23 19:05:00 170.2 cm [facility] Body weight 2023-07-23 19:05:00 95.346 kg [facility] BMI 2023-07-23 19:05:00 32.92 kg/m2 [facility] Systolic blood pressure 2023-07-14 19:20:00 113 mm[Hg] [facility] Diastolic blood pressure 2023-07-14 19:20:00 69 mm[Hg] [facility] Heart rate 2023-07-14 19:20:00 102 /min [facility] Body temperature 2023-07-14 19:20:00 36.94 Yolie [facility] Respiratory rate 2023-07-14 19:20:00 18 /min [facility] Body height 2023-07-14 19:20:00 170.2 cm [facility] Body weight 2023-07-14 19:20:00 94.257 kg [facility] BMI 2023-07-14 19:20:00 32.55 kg/m2 [facility] Oxygen saturation in Arterial blood by Pulse oximetry 2023-07-14 19:20:00 98 /min [facility] Systolic blood pressure 2023-07-07 19:32:00 124 mm[Hg] [facility] Diastolic blood pressure 2023-07-07 19:32:00 72 mm[Hg] [facility] Heart rate 2023-07-07 19:32:00 91 /min [facility] Body temperature 2023-07-07 19:32:00 36.33 Yolie [facility] Body weight 2023-07-07 19:32:00 93.35 kg [facility] BMI 2023-07-07 19:32:00 33.22 kg/m2 [facility] Systolic blood pressure 2023-06-23 20:55:00 111 mm[Hg] [facility] Diastolic blood pressure 2023-06-23 20:55:00 77 mm[Hg] [facility] Heart rate 2023-06-23 20:55:00 103 /min [facility] Body temperature 2023-06-23 20:55:00 36.44 Yolie [facility] Body weight 2023-06-23 20:55:00 92.987 kg [facility] BMI 2023-06-23 20:55:00 33.09 kg/m2 [facility] Systolic blood pressure 2023-06-05 21:45:00 119 mm[Hg] [facility] Diastolic blood pressure 2023-06-05 21:45:00 74 mm[Hg] [facility] Heart rate 2023-06-05 21:45:00 91 /min [facility] Body temperature 2023-06-05 21:45:00 36.83 Yolie [facility] Respiratory rate 2023-06-05 21:45:00 18 /min [facility] Oxygen saturation in Arterial blood by Pulse oximetry 2023-06-05 21:45:00 99 /min [facility] Systolic blood pressure 2023-06-01 15:18:00 124 mm[Hg] [facility] Diastolic blood pressure 2023-06-01 15:18:00 76 mm[Hg] [facility] Heart rate 2023-06-01 15:18:00 96 /min [facility] Body temperature 2023-06-01 15:18:00 36.83 Yolie [facility] Respiratory rate 2023-06-01 15:18:00 18 /min [facility] Body height 2023-06-01 15:18:00 167.6 cm [facility] Body weight 2023-06-01 15:18:00 90.447 kg [facility] BMI 2023-06-01 15:18:00 32.18 kg/m2 [facility] Oxygen saturation in Arterial blood by Pulse oximetry 2023-06-01 15:18:00 99 /min [facility] Systolic blood pressure 2023-05-01 19:29:00 126 mm[Hg] [facility] Diastolic blood pressure 2023-05-01 19:29:00 80 mm[Hg] [facility] Heart rate 2023-05-01 19:29:00 88 /min [facility] Body temperature 2023-05-01 19:29:00 36.94 Yolie [facility] Respiratory rate 2023-05-01 19:29:00 16 /min [facility] Body height 2023-05-01 19:29:00 167.6 cm [facility] Body weight 2023-05-01 19:29:00 87.952 kg [facility] BMI 2023-05-01 19:29:00 31.30 kg/m2 [facility] Oxygen saturation in Arterial blood by Pulse oximetry 2023-05-01 19:29:00 100 /min [facility] Systolic blood pressure 2023-04-15 16:00:00 120 mm[Hg] [facility] Diastolic blood pressure 2023-04-15 16:00:00 72 mm[Hg] [facility] Heart rate 2023-04-15 16:00:00 87 /min [facility] Body temperature 2023-04-15 16:00:00 36.94 Yolie [facility] Respiratory rate 2023-04-15 16:00:00 18 /min [facility] Body height 2023-04-15 16:00:00 167.6 [facility] 2023-04-15 16:00:00 87.816 kg [facility] BMI 2023-04-15 16:00:00 31.25 kg/m2 [facility] Oxygen saturation in Arterial blood by Pulse oximetry 2023-04-15 16:00:00 98 /min [facility] Systolic blood pressure 2023-04-15 14:15:00 120 mm[Hg] [facility] Diastolic blood pressure 2023-04-15 14:15:00 82 mm[Hg] [facility] Heart rate 2023-04-15 14:15:00 91 /min [facility] Respiratory rate 2023-04-15 14:15:00 18 /min [facility] Body height 2023-04-15 14:15:00 167.6 cm [facility] Body weight 2023-04-15 14:15:00 87.998 kg [facility] BMI 2023-04-15 14:15:00 31.31 kg/m2 [facility] Systolic blood pressure 2023-03-31 13:57:00 137 mm[Hg] [facility] Diastolic blood pressure 2023-03-31 13:57:00 88 mm[Hg] [facility] Heart rate 2023-03-31 13:57:00 99 /min [facility] Body temperature 2023-03-31 13:57:00 36.5 Yolie [facility] Respiratory rate 2023-03-31 13:57:00 18 /min [facility] Body height 2023-03-31 13:57:00 167.6 cm [facility] Body weight 2023-03-31 13:57:00 85.73 kg [facility] BMI 2023-03-31 13:57:00 30.51 kg/m2 [facility] Systolic blood pressure 2023-03-03 15:00:00 108 mm[Hg] [facility] Diastolic blood pressure 2023-03-03 15:00:00 69 mm[Hg] [facility] Heart rate 2023-03-03 15:00:00 100 /min [facility] Body temperature 2023-03-03 15:00:00 37.22 Yolie [facility] Respiratory rate 2023-03-03 15:00:00 18 /min [facility] Body height 2023-03-03 15:00:00 167.6 cm [facility] Body weight 2023-03-03 15:00:00 84.369 kg [facility] BMI 2023-03-03 15:00:00 30.02 kg/m2 [facility] Systolic blood pressure 2023-02-03 14:23:00 108 mm[Hg] [facility] [place] Diastolic blood pressure 2023-02-03 14:23:00 72 mm[Hg] [place] o [facility] Heart rate 2023-02-03 14:23:00 88 /min Un[facility] Body temperature 2023-02-03 14:23:00 37 Yolie [facility] Respiratory rate 2023-02-03 14:23:00 18 /min [facility] Body height 2023-02-03 14:23:00 167.6 cm [facility] Body weight 2023-02-03 14:23:00 84.278 kg [facility] BMI 2023-02-03 14:23:00 29.99 kg/m2 [facility] Systolic blood pressure 2023-01-06 15:22:00 119 mm[Hg] [facility] o [facility] Diastolic blood pressure 2023-01-06 15:22:00 75 mm[Hg] [facility] Heart rate 2023-01-06 15:19:00 92 /min [facility] Res[facility] rate 2023-01-06 15:19:00 18 /min [facility] Body height 2023-01-06 15:19:00 168.9 cm [facility] Body weight 2023-01-06 15:19:00 84.823 kg [facility] BMI 2023-01-06 15:19:00 29.73 kg/m2 [facility] Systolic blood pressure 2022-12-08 20:23:00 127 mm[Hg] [facility] Diastolic blood pressure 2022-12-08 20:23:00 79 mm[Hg] [facility] Heart rate 2022-12-08 20:23:00 100 /min Un[facility] Body temperature 2022-12-08 20:23:00 36.83 Yolie [facility] Respiratory rate 2022-12-08 20:23:00 16 /min [facility] Body height 2022-12-08 20:23:00 168.9 cm [facility] Body weight 2022-12-08 20:23:00 86.229 kg [facility] BMI 2022-12-08 20:23:00 30.22 kg/m2 [facility] Oxygen saturation in Arterial blood by Pulse oximetry 2022-12-08 20:23:00 98 /min [facility] Systolic blood pressure 2020-05-08 20:35:00 121 mm[Hg] [facility] Diastolic blood pressure 2020-05-08 20:35:00 77 mm[Hg] [facility] Heart rate 2020-05-08 20:35:00 90 /min [facility] Body temperature 2020-05-08 20:35:00 37 Yolie [facility] Respiratory rate 2020-05-08 20:35:00 16 /min [facility] Body height 2020-05-08 20:35:00 167.6 cm [facility] Body weight 2020-05-08 20:35:00 66.792 kg [facility] BMI 2020-05-08 20:35:00 23.77 kg/m2 [facility] Systolic blood pressure 2020-05-08 20:35:00 121 mm[Hg] [facility] Diastolic blood pressure 2020-05-08 20:35:00 77 mm[Hg] [facility] Heart rate 2020-05-08 20:35:00 90 /min [facility] Body temperature 2020-05-08 20:35:00 37 Yolie [facility] Respiratory rate 2020-05-08 20:35:00 16 /min [facility] Body height 2020-05-08 20:35:00 167.6 cm [facility] Body weight 2020-05-08 20:35:00 66.792 kg [facility] BMI 2020-05-08 20:35:00 23.77 kg/m2 [facility] Systolic blood pressure 2019-08-11 15:05:00 128 mm[Hg] [facility] Diastolic blood pressure 2019-08-11 15:05:00 78 mm[Hg] [facility] Heart rate 2019-08-11 15:05:00 88 /min [facility] Body temperature 2019-08-11 15:05:00 36.78 Yolie [facility] Respiratory rate 2019-08-11 15:05:00 18 /min [facility] Body height 2019-08-11 15:05:00 165.1 cm [facility] Body weight 2019-08-11 15:05:00 65.063 kg [facility] BMI 2019-08-11 15:05:00 23.87 kg/m2 [facility] Systolic blood pressure 2019-08-09 19:56:00 137 mm[Hg] [facility] Diastolic blood pressure 2019-08-09 19:56:00 83 mm[Hg] [facility] Heart rate 2019-08-09 19:56:00 110 /min [facility] Body temperature 2019-08-09 19:56:00 36.89 Yolie [facility] Respiratory rate 2019-08-09 19:56:00 18 /min [facility] Body weight 2019-08-09 19:56:00 66.679 kg [facility] BMI 2019-08-09 19:56:00 24.46 kg/m2 [facility] Oxygen saturation in Arterial blood by Pulse oximetry 2019-08-09 19:56:00 100 /min [facility] Procedures Procedure Date / Time Performed Performing Clinician Source DME/SUPPLY JUSTIFICATION 2023-09-09 06:01:00 Doc tor Unassigned, [place] [facility] CBC WITH DIFF 2023-08-05 09:55:00 Michelle Reno [facility] CENTRAL NEURAXIAL BLOCK 2023-08-04 14:16:00 German Puri [facility] CBC WITH DIFF 2023-08-04 10:42:00 Michelle Reno [facility] sity [facility] HEPATITIS B SURFACE ANTIGEN 2023-08-04 10:42:00 Michelle Reon [facility] HB ABO GROUPING 2023-08-04 10:42:00 Michelle Rneo [facility] RHO (D) IMMUNE GLOBULIN 2023-08-04 10:42:00 Michelle Reno [facility] ADC OR JADON ONLY - RPR 2023-08-04 10:42:00 Michelle Reno [facility] HIV 1/2 AG-AB WITH REFLEX 2023-08-04 10:42:00 Michelle Reno [facility] HOSPITAL ADMISSION 2023-08-04 06:01:00 Doctor Un assigned, [place] [facility] NON-STRESS TEST 2023-07-29 19:03:20 Michelle Reno m [facility] POCT URINALYSIS W/O SPECIFIC GRAVITY 2023-07-29 00:00:00 Michelle Reno [facility] NOTICE OF PRIVACY PRACTICES 2023-07-23 19:33:18 Doctor Unassigned, [place] [facility] CONSENT/REFUSAL FOR DIAGNOSIS AND TREATMENT 2023-07-23 19:30:19 Doctor Unassigned, [place] [facility] ASSIGNMENT OF BENEFITS 2023-07-23 19:30:06 Docto r Unassigned, [place] [facility] POCT URINALYSIS W/O SPECIFIC GRAVITY 2023-07-23 00:00:00 Michelle Reno [facility] SECOND AND THIRD TRIMESTER ULTRASOUND 2023-07-22 20:58:00 Lorraine Zavala [facility] POCT URINALYSIS W/O SPECIFIC GRAVITY 2023-07-14 00:00:00 Michelle Reno [facility] >14 WEEKS US LIMITED 2023-07-07 19:49:13 Michelle Reno [facility] DSU PRE-OP 2023-07-07 06:01:00 Doctor Unass igned, [place] [facility] POCT URINALYSIS W/O SPECIFIC GRAVITY 2023-07-07 00:00:00 Julianne Renoen Rodolfo [facility] SECOND AND THIRD TRIMESTER ULTRASOUND 2023-06-25 16:23:00 [facility] POCT URINALYSIS W/O SPECIFIC GRAVITY 2023-06-23 00:00:00 Michelle Reno Rodolfo [facility] ASSIGNMENT OF BENEFITS 2023-06-05 19:15:51 Docto r Unassigned, [place] [facility] CONSENT/REFUSAL FOR DIAGNOSIS AND TREATMENT 2023-06-05 19:14:50 Doctor Unassigned, [place] [facility] NON-STRESS TEST 2023-06-01 15:52:08 Rafael Michelle [facility] SECOND AND THIRD TRIMESTER ULTRASOUND 2023-05-21 18:15:00 Stephanie [facility] POCT URINALYSIS W/O SPECIFIC GRAVITY 2023-05-01 00:00:00 Rafael Michelle Reynolds [facility] SECOND AND THIRD TRIMESTER ULTRASOUND 2023-04-21 16:34:00 [facility] CONSENT/REFUSAL FOR DIAGNOSIS AND TREATMENT 2023-04-15 15:44:15 Doctor Unassigned, [place] [facility] ASSIGNMENT OF BENEFITS 2023-04-15 15:43:43 Docto r Unassigned, [place] [facility] NON-STRESS TEST 2023-04-15 15:16:10 Stephanie [facility] POCT URINALYSIS W/O SPECIFIC GRAVITY 2023-03-31 00:00:00 Stephanie [facility] SECOND AND THIRD TRIMESTER ULTRASOUND 2023-03-27 18:55:00 Stephanie [facility] POCT URINALYSIS W/O SPECIFIC GRAVITY 2023-03-03 00:00:00 Phyllis Woodward [facility] POCT URINALYSIS W/O SPECIFIC GRAVITY 2023-02-03 00:00:00 Stephanie [facility] SCANNED LAB RESULTS 2023-01-24 05:01:00 Doctor Eliud haro, [place] [facility] POCT URINALYSIS W/O SPECIFIC GRAVITY 2023-01-06 00:00:00 Lorraine Zavala [facility] FIRST TRIMESTER LESS THAN 14 WEEKS WITH TRANSVAGINAL 2022-12-17 16:25:54 Lorraine Zavala [facility] GC & CHLAMYDIA AMPLIFIED ASSAY 2022-12-08 20:31:00 Lorraine Zavala [facility] TRICHOMONAS AMPLIFIED ASSAY 2022-12-08 20:31:00 Lorraine Zavala [facility] ASSIGNMENT OF BENEFITS 2022-12-08 20:07:57 Docto r Unassigned, [place] [facility] POCT TEST 2022-12-08 00:00:00 Ang Zavala [facility] POCT TEST 2020-05-08 20:59:00 Jayant Vazquez [facility] <14 WEEKS US LIMITED 2019-08-11 16:53:20 Kelsie Hampton [facility] CONSENT/REFUSAL FOR DIAGNOSIS AND TREATMENT 2019-08-09 19:45:32 Doctor Unassigned, [place] [facility] NOTICE OF PRIVACY PRACTICES 2019-08-09 19:45:14 Doctor Unassigned, [place] [facility] Encounters Start Date/Time End Date/Time Encounter Type Admission Type Attending Clinicians Care Facility Care Department Encounter ID Source 2023-06-05 13:04:38 Emergency X [facility] [id number] [facility] 2023-04-15 12:51:35 Outpatient P [facility] YEIMY [id number] [facility] 2024-02-23 13:30:00 2024-02-23 13:30:00 Outpatient R MICHELLE RENO VIEN [facility] [id number] [facility] 2024-02-16 00:00:00 2024-02-16 13:59:09 Telephone Michelle Reno [facility] 1.2.840.114 350.1.13.10 4.2.7.2.686 [id number] 134 [id number] [facility] 2024-01-26 00:00:00 2024-01-26 10:15:57 Telephone [place], [facility] 1.2840.114 350.1.13.10 4.2.7.2.686 [id number] 134 [id number] [facility] 2023-09-09 00:00:00 2023-09-09 00:00:00 Telephone Michelle Reno [facility] 1.2840.114 350.1.13.10 4.2.7.2.686 [id number] 134 [id number] [facility] 2023-09-09 00:00:00 2023-09-09 00:00:00 Telephone Michelle Reno [facility] 1.2840.114 350.1.13.10 4.2.7.2.686 [id number] 134 [id number] [facility] 2023-09-09 00:00:00 2023-09-09 00:00:00 Orders Only Doctor Unassigned, [place] [facility] 1.2840.114 350.1.13.10 4.2.7.2.686 [id number] [facility] 2023-09-03 15:30:00 2023-09-03 15:30:00 Outpatient R MICHELLE RENO [facility] [id number] [facility] 2023-09-03 13:45:00 2023-09-03 13:45:00 Outpatient R RENO MICHELLE [facility] [id number] [facility] 2023-09-03 11:15:00 2023-09-03 11:54:52 Outpatient R MICHELLE RENO [facility] [id number] [facility] 2023-09-03 11:15:00 2023-09-03 11:54:52 Routine Visit Michelle Reno [facility] 1.2840.114 350.1.13.10 4.2.7.2.686 [id number] 134 [id number] [facility] 2023-08-04 03:57:00 2023-08-05 19:26:00 Hospital Encounter Michelle Reno [facility] 1.2.840.114 350.1.13.10 4.2.7.2.686 [id number] [facility] 2023-08-04 03:57:00 2023-08-05 19:26:00 Inpatient P MICHELLE RENO [facility] YEIMY [id number] [facility] 2023-08-04 18:44:02 2023-08-04 18:44:02 Anesthesia Event German Puri [facility] 1.2840.114 350.1.13.10 4.2.7.2.686 [id number] [facility] 2023-08-04 08:13:00 2023-08-04 18:39:00 Anesthesia Event Patel Meenakshigeronimo Boswell Lio Allen [facility] 1.2840.114 350.1.13.10 4.2.7.2.686 [id number] [facility] 2023-08-04 00:00:00 2023-08-04 00:00:00 Orders Only Doctor Unassigned, [place] [facility] 1.2840.114 350.1.13.10 4.2.7.2.686 [id number] [facility] 2023-07-29 10:00:00 2023-07-29 10:28:55 Outpatient R MICHELLE RENO [facility] [id number] [facility] 2023-07-29 10:00:00 2023-07-29 10:28:55 Routine Visit Michelle Reno [facility] 1.2840.114 350.1.13.10 4.2.7.2.686 [id number] 134 [id number] [facility] 2023-07-28 00:00:00 2023-07-28 00:00:00 Telephone Michelle Reno [facility] 1.2.840.114 350.1.13.10 4.2.7.2.686 [id number] 134 [id number] [facility] 2023-07-24 14:30:00 2023-07-24 14:30:00 Outpatient P ROB KELLOGG [facility] [id number] [facility] 2023-07-23 13:15:00 2023-07-23 13:48:26 Outpatient R MICHELLE RENO [facility] [id number] [facility] 2023-07-23 13:15:00 2023-07-23 13:30:00 Routine Visit Michelle Reno [facility] 1.2.840.114 350.1.13.10 4.2.7.2.686 [id number] 134 [id number] [facility] 2023-07-23 00:00:00 2023-07-23 00:00:00 Telephone Michelle Reno [facility] 1.2.840.114 350.1.13.10 4.2.7.2.686 [id number] 134 [id number] [facility] 2023-07-23 00:00:00 2023-07-23 00:00:00 Patient Secure Msg Doctor Unassigned, [place] [facility] 1.2.840.114 350.1.13.10 4.2.7.2.686 [id number] 134 [id number] [facility] 2023-07-22 15:00:00 2023-07-22 15:00:00 Agile Scrum Master Visit 4, [facility] Us Room Rob Kellogg [facility] 1.840.114 350.1.13.10 4.2.7.2.686 [id number] [facility] 2023-07-22 15:00:00 2023-07-22 14:59:00 Outpatient LEILA NARAYAN [facility] [id number] [facility] 2023-07-16 13:15:00 2023-07-16 13:15:00 Outpatient R MICHELLE RENO [facility] [id number] [facility] 2023-07-14 13:15:00 2023-07-14 13:49:14 Outpatient R MICHELLE RENO [facility] [id number] [facility] 2023-07-14 13:15:00 2023-07-14 13:49:14 Routine Visit Michelle Reno [facility] 1.840.114 350.1.13.10 4.2.7.2.686 [id number] 134 [id number] [facility] 2023-07-07 15:15:00 2023-07-07 15:30:00 Agile Scrum Master Visit 2, [facility] Michelle Reno [facility] 1.84.114 350.1.13.10 4.2.7.2.686 [id number] [facility] 2023-07-07 13:45:00 2023-07-07 13:50:21 Outpatient R MICHELLE RENO [facility] [id number] [facility] 2023-07-07 13:45:00 2023-07-07 13:50:21 Routine Visit Michelle Reno [facility] 1.284.114 350.1.13.10 4.2.7.2.686 [id number] 134 [id number] [facility] 2023-07-07 00:00:00 2023-07-07 00:00:00 Orders Only Doctor Unassigned, [place] [facility] 1.284.114 350.1.13.10 4.2.7.2.686 [id number] [facility] 2023-06-26 14:30:00 2023-06-26 14:30:00 Outpatient P LAURA RYDERBENJAMINROB LEMOS [facility] [id number] [facility] 2023-06-25 10:00:00 2023-06-25 10:30:24 Outpatient P LAURA RYDERJESSY ROB Allen [facility] [id number] [facility] 2023-06-25 10:00:00 2023-06-25 10:30:24 Agile Scrum Master Visit Ultrasound, Mat-Rob Durand [facility] 1.2.840.114 350.1.13.10 4.2.7.2.686 [id number] [facility] 2023-06-23 15:00:00 2023-06-23 15:05:52 Outpatient R MICHELLE RENO [facility] [id number] [facility] 2023-06-23 15:00:00 2023-06-23 15:05:52 Routine Visit Michelle Reno [facility] 1.2.840.114 350.1.13.10 4.2.7.2.686 [id number] 134 [id number] [facility] 2023-06-17 15:45:00 2023-06-17 15:45:00 Outpatient R MICHELLE RENO [facility] [id number] [facility] 2023-06-15 09:45:00 2023-06-15 09:45:00 Outpatient R MICHELLE RENO [facility] [id number] [facility] 2023-06-05 13:15:00 2023-06-05 15:50:00 Outpatient P MICHELLE RENO [facility] YEIMY [id number] [facility] 2023-06-05 13:15:00 2023-06-05 15:50:00 Hospital Encounter Michelle Reno [facility] 1.2.840.114 350.1.13.10 4.2.7.2.686 [id number] [facility] 2023-06-05 00:00:00 2023-06-05 00:00:00 Telephone Michelle Reno [facility] 1.2.840.114 350.1.13.10 4.2.7.2.686 [id number] [facility] 2023-06-01 11:00:00 2023-06-01 11:15:00 Agile Scrum Master Visit 2, Adc Lab Michelle Reno [facility] 1.2.840.114 350.1.13.10 4.2.7.2.686 [id number] [facility] 2023-06-01 08:45:00 2023-06-01 09:50:06 Outpatient R MICHELLE RENO [facility] [id number] [facility] 2023-06-01 08:45:00 2023-06-01 09:50:06 Routine Visit Michelle Reno [facility] 1.2.840.114 350.1.13.10 4.2.7.2.686 [id number] [facility] 2023-05-29 13:45:00 2023-05-29 13:45:00 Outpatient R MICHELLE RENO [facility] [id number] [facility] 2023-05-21 13:00:00 2023-05-21 13:30:03 Outpatient P ROB KELLOGG [facility] [id number] [facility] 2023-05-21 13:00:00 2023-05-21 13:30:03 Agile Scrum Master Visit Ultrasound, [facility] Rob Kellogg [facility] 1.840.114 350.1.13.10 4.2.7.2.686 [id number] [facility] 2023-05-01 14:30:00 2023-05-01 14:39:53 Outpatient R JULIANNE RENOEN [facility] [id number] [facility] 2023-05-01 14:30:00 2023-05-01 14:39:53 Routine Visit Julianne Renoen Rodolfo [facility] 1.0.114 350.1.13.10 4.2.7.2.686 [id number] [facility] 2023-04-24 14:30:00 2023-04-24 14:30:00 Outpatient P [facility] [id number] [facility] 2023-04-22 00:00:00 2023-04-22 00:00:00 Nurse Triage Maira Kim [facility] 1.0.114 350.1.13.10 4.2.7.2.686 [id number] [facility] 2023-04-21 11:30:00 2023-04-21 11:50:12 Outpatient P ROB KELLOGG [facility] [id number] [facility] 2023-04-21 11:30:00 2023-04-21 11:50:12 Agile Scrum Master Visit 1, [facility] Room Rob Kellogg [facility] 1.0.114 350.1.13.10 4.2.7.2.686 [id number] [facility] 2023-04-20 00:00:00 2023-04-20 00:00:00 Telephone Lorraine Zavala [facility] 1.0.114 350.1.13.10 4.2.7.2.686 [id number] [facility] 2023-04-15 10:43:00 2023-04-15 12:40:00 Outpatient P CAMILLE TAVAREZ [facility] YE[facility] [id number] [facility] 2023-04-15 10:43:00 2023-04-15 12:40:00 Hospital Encounter Camille Tavarez [facility] 1.2840.114 350.1.13.10 4.2.7.2.686 [id number] [facility] 2023-04-15 11:00:00 2023-04-15 11:00:00 Routine Visit Lorraine Zavala [facility] 1.2840.114 350.1.13.10 4.2.7.2.686 [id number] [facility] 2023-04-15 11:00:00 2023-04-15 09:54:26 Outpatient R LORRAINE ZAVALA [facility] [id number] [facility] 2023-04-15 00:00:00 2023-04-15 00:00:00 Telephone Michelle Reno [facility] 1.2840.114 350.1.13.10 4.2.7.2.686 [id number] [facility] 2023-04-15 00:00:00 2023-04-15 00:00:00 Patient Secure Msg Lorraine Zavala [facility] 1.0.114 350.1.13.10 4.2.7.2.686 [id number] 134 [id number] [facility] 2023-04-13 13:15:00 2023-04-13 13:15:00 Outpatient R MICHELLE RENO [facility] [id number] [facility] 2023-03-31 09:00:00 2023-03-31 09:07:15 Outpatient R LORRAINE ZAVALA [facility] [id number] [facility] 2023-03-31 09:00:00 2023-03-31 09:07:15 Routine Visit Lorraine Zavala [facility] 1.2840.114 350.1.13.10 4.2.7.2.686 [id number] [facility] 2023-03-28 00:00:00 2023-03-28 00:00:00 [facility] 1..114 350.1.13.10 4.2.7.2.686 [id number] [facility] 2023-03-27 13:00:00 2023-03-27 14:22:55 Outpatient P ROBYN CORTEZ [facility] [id number] [facility] 2023-03-27 13:00:00 2023-03-27 14:22:55 Agile Scrum Master Visit 1, [facility] Robyn Cortez [facility] 1..114 350.1.13.10 4.2.7.2.686 [id number] [facility] 2023-03-23 14:30:00 2023-03-23 14:30:00 Outpatient P [facility] [id number] [facility] 2023-03-03 10:45:00 2023-03-03 11:00:05 Outpatient R CRISSY [facility] [id number] [facility] 2023-03-03 10:45:00 2023-03-03 11:00:00 Agile Scrum Master Visit 2, [facility] Lab Phyllis Woodward [facility] 1.0.114 350.1.13.10 4.2.7.2.686 [id number] [facility] 2023-03-03 10:15:00 2023-03-03 10:38:18 Routine Visit Stephyivon Phyllis [facility] 1..840.114 350.1.13.10 4.2.7.2.686 [id number] [facility] 2023-03-03 09:30:00 2023-03-03 09:30:00 Outpatient R LORRAINE ZAVALA [facility] [id number] [facility] 2023-02-12 08:00:00 2023-02-12 10:23:21 Outpatient R LORRAINE ZAVALA [facility] [id number] [facility] 2023-02-12 08:00:00 2023-02-12 08:15:00 [employer] [facility] 1..840.114 350.1.13.10 4.2.7.2.686 [id number] 353 [id number] [facility] 2023-02-06 00:00:00 2023-02-06 00:00:00 Telephone Robyn Pinon [facility] 1..840.114 350.1.13.10 4.2.7.2.686 [id number] 134 [id number] [facility] 2023-02-04 08:30:00 2023-02-04 08:30:00 Outpatient R [facility] [id number] [facility] 2023-02-03 09:30:00 2023-02-03 09:49:54 Outpatient R LORRAINE ZAVALA [facility] [id number] [facility] 2023-02-03 09:30:00 2023-02-03 09:49:54 Routine Visit Lorraine Zavala [facility] 1.2.840.114 350.1.13.10 4.2.7.2.686 [id number] 134 [id number] [facility] 2023-02-03 00:00:00 2023-02-03 00:00:00 Telephone Robyn Pinon [facility] 1.2840.114 350.1.13.10 4.2.7.2.686 [id number] 134 [id number] [facility] 2023-01-24 00:00:00 2023-01-24 00:00:00 Orders Only Doctor Unassigned, [place] [facility] 1.2.114 350.1.13.10 4.2.7.2.686 [id number] [id number] [facility] [facility]-22 13:30:00 2023-01-22 13:46:52 Outpatient [facility] [id number] [facility] 2023-01-22 13:30:00 2023-01-22 13:46:52 Agile Scrum Master Visit Lab, Mat - He Zavala [facility] REFUGIO?WAQAS [facility] MEDICAL OFFICE BUILDING 1..114 350.1.13.10 4.2.7.2.686 [id number] [facility] 2023-01-22 08:30:00 2023-01-22 08:30:00 Outpatient [facility] [id number] [facility] 2023-01-06 10:30:00 2023-01-06 10:52:13 Outpatient R LORRAINE ZAVALA [facility] [id number] [facility] 2023-01-06 10:30:00 2023-01-06 10:52:13 Routine Visit Lorraine Zavala [facility] 1..114 350.1.13.10 4.2.7.2.686 [id number] [facility] 2023-01-05 08:15:00 2023-01-05 08:15:00 Outpatient R LORRAINE ZAVALA [facility] [id number] [facility] 2022-12-23 00:00:00 2022-12-23 00:00:00 [facility] 1.2840.114 350.1.13.10 4.2.7.2.686 [id number] [facility] 2022-12-22 00:00:00 2022-12-22 00:00:00 Case Management [facility] 1.0.114 350.1.13.10 4.2.7.2.686 [id number] [facility] 2022-12-17 10:28:10 2022-12-17 23:59:00 Outpatient R LORRAINE ZAVALA [facility] [id number] [facility] 2022-12-17 10:28:10 2022-12-17 23:59:00 [facility] 1..114 350.1.13.10 4.2.7.2.686 [id number] [facility] 2022-12-17 00:00:00 2022-12-17 00:00:00 Telephone [facility] 1.20.114 350.1.13.10 4.2.7.2.686 [id number] [facility] 2022-12-11 00:00:00 2022-12-11 00:00:00 Telephone [facility] 1.2.840.114 350.1.13.10 4.2.7.2.686 [id number] [facility] 2022-12-08 16:30:00 2022-12-08 16:45:00 Agile Scrum Master Visit Lab, Mat - Lorraine Farris [facility] 1.2840.114 350.1.13.10 4.2.7.2.686 [id number] [facility] 2022-12-08 15:15:00 2022-12-08 15:47:48 Outpatient R LORRAINE ZAVALA [facility] [id number] [facility] 2022-12-08 15:15:00 2022-12-08 15:47:48 Initial Visit Lorraine Zavala [facility] 1.2840.114 350.1.13.10 4.2.7.2.686 [id number] [facility] 2022-12-08 00:00:00 2022-12-08 00:00:00 Orders Only Doctor Unassigned, [place] [facility] 1.2.840.114 350.1.13.10 4.2.7.2.686 [id number] [facility] 2021-07-09 00:00:00 2021-07-09 00:00:00 Patient Secure Msg Doctor Unassigned, [place] [facility] 1.2.840.114 350.1.13.10 4.2.7.2.686 [id number] [facility] 2020-10-16 00:00:00 2020-10-16 00:00:00 Patient Outreach Josesito Cortez [facility] 1.2.840.114 350.1.13.10 4.2.7.2.686 [id number] 2020-10-16 00:00:00 2020-10-16 00:00:00 Patient Outreach TrevonJosesito [facility] 1.2.840.114 350.1.13.10 4.2.7.2.686 [id number] [facility] 2020-05-08 15:26:17 2020-05-08 16:00:17 Office Visit Essence Vazquez [facility] 1.2.840.114 350.1.13.10 4.2.7.2.686 [id number] 2020-05-08 15:26:17 2020-05-08 16:00:17 Office Visit Essence Vazquez [facility] 1.2.840.114 350.1.13.10 4.2.7.2.686 [id number] [facility] 2020-05-08 14:30:00 2020-05-08 14:30:00 Outpatient R ESSENCE VAZQUEZ [facility] [id number] [facility] 2020-05-08 00:00:00 2020-05-08 00:00:00 Telephone Ana Cristina Red [facility] 1.2.840.114 350.1.13.10 4.2.7.2.686 [id number] [facility] 2020-05-08 00:00:00 2020-05-08 00:00:00 Telephone Ana Cristina Red [facility] 1.2.840.114 350.1.13.10 4.2.7.2.686 [id number] 2019-09-15 00:00:00 2019-09-15 00:00:00 Letter (Out) Ana Cristina Red [facility] 1.2.840.114 350.1.13.10 4.2.7.2.686 [id number] [facility] 2019-09-08 00:00:00 2019-09-08 00:00:00 Telephone Ana Cristina Red [facility] 1.2.840.114 350.1.13.10 4.2.7.2.686 [id number] [facility] 2019-09-02 00:00:00 2019-09-02 00:00:00 Telephone [facility] 1.2.840.114 350.1.13.10 4.2.7.2.686 [id number] [facility] 2019-09-02 00:00:00 2019-09-02 00:00:00 Telephone Nidia Garner [facility] 1.2.840.114 350.1.13.10 4.2.7.2.686 [id number] [facility] 2019-08-11 08:52:08 2019-08-11 10:54:31 Routine Visit Trimester, [facility] Res-1st Logan Miller [facility] 1.2.840.114 350.1.13.10 4.2.7.2.686 [id number] [facility] 2019-08-09 13:58:12 2019-08-09 15:59:00 Emergency Lisha Celis [facility] 1.2.840.114 350.1.13.10 4.2.7.2.686 [id number] [facility] Results Test Description Test Time Test Comments Results Result Co mments Source [facility] IMMUNE [id number] 01:46:34* Test Item Value Reference Range Interpretation Comme nts RHIG CANDIDATE? (test code = 5188) No- see comment Patient is not a candidate for RhIg- Patient is Rh Positive.Performed at [facility] Laboratory Services - [facility] Blood [address] [place] [id number] Free: [phone] No. [id number] [facility] HoustonHepatitis B Surface [id number] 18:58:22 * Test Item Value Reference Range Interpretation Comme nts HBsAg Semi-Quantitative (israel t code = 5195-3) 0.06 Negative [facility] [id number] 14:16:00 German Puri CRNA ? ? 08/04/2023 ?8:53 AM Central Neuraxial Block Date/Time: 08/04/2023 8:16 AM Performed by: German Puri CRNAAuthorized by: Meenakshi Sweeney MD ?Patient Location: OBEnd Time: 08/04/2023 8:32 AMReason for Block: OB request, Patient request and Labor analgesiaStaff: ? ?Resident/SOLDERING MACHINE OPERATOR AUTOMATIC: German Puri CRNA ?Performed by: resident/SHELLYPreanesthetic Checklist: patient identified, IV checked, risks and benefits explained, monitors and equipment checked, timeout performed, ob surgical consent/approval, pre-op evaluation, surgical consent, site marked, anesthesia consent, OB/surgical consent verified, ob/surgical consent verified and ob/surgical consent approvalProcedure:?Type of Neuraxial: Epidural ?Epidural Description: 1st attempt ? Sterility Prep cap, drape, gloves, hand hygiene and mask ? ?Sedation Level no sedation ?Patient Position: sitting ?Prep: Betadine andpatient draped ? ?Monitoring: heart rate, continuous pulse ox, heart rate / toco and NIBP ?Location: lumbar (1-5) ?Lumbar: L4-L5 ?Approach: midline ? ?Technique: catheter and SUHA saline ?Guidance with: landmark technique}Epidural/Spinal [place] and/or Catheter: ?Epidural/Spinal Kit: BBraun ?Needle Type: Tuohy ?Needle Gauge: 17 G ?Needle Length: 3.5 in (8.89 cm) ?Needle Insertion Depth: 6 ?Catheter Type: multiport ? ?Catheter Size: 19 G ? ?Catheter at Skin Depth: 11 ?Number of Attempts: 1 ?Test Dose: lidocaine 1.5% with epinephrine 1-to-200,000 and negative ? ?Dose: 3 cc ? ?Catheter Securement Method: Tegaderm, surgical tape and clear occlusive dressingAssessment: ?Sensory Level: [id number] ?Block Outcome: successful block, no apparent complications, pain relieved, patient tolerated procedure well, patient satisfied, patient comfortable, positive pain relief, appropriate motor block, appropriate sensory block and pain improved ? ?Procedure Assessment: patient tolerated procedure well with no complicationsNotes: ? Smooth and atraumatic, (+) Local, (+) [facility] Center[facility]/2 Ag-Ab with [id number] 13:09:52* Test Item Value Reference Range Interpretation Comme nts HIV Semi-quantitative (test code = 63015-5) 0.14 Negative JORDAN (test code = JORDAN) Non-reactive for HIV-1 antigen and HIV-1/HIV-2 antibodies. ?No laboratory evidence of HIV infection. ?Repeat in 2-4 weeks if acute HIV infection is suspected. [facility] with [id number] 11:12:36* Test Item Value Reference Range Interpretation Comme nts WBC (test code = 6690-2) 9.41 See_Comment [Automated Chikkaa ge] The system which generated this result transmitted reference range: 4.30 - 11.10 10*3/?L. The reference range was not used to interpret this result as normal/abnormal. RBC (test code = 789-8) 3.66 See_Comment L [Automated Chikkaa ge] The system which generated this result transmitted reference range: 3.93 - 5.25 10*6/?L. The reference range was not used to interpret this result as normal/abnormal. HGB (test code = 718-7) 11.8 g/dL 11.6-15.0 HCT (test code = 4544-3) 34.3 % 35.7-45.2 L MCV (test code = 787-2) 93.7 fL 80.6-95.5 MCH (test code = 785-6) 32.2 pg 25.9-32.8 MCHC (test code = 786-4) 34.4 g/dL 31.6-35.1 RDW-SD (test code = 96475-9) 45.8 fL 39.0-49.9 RDW-CV (test code = 788-0) 13.2 % 12.0-15.5 PLT (test code = 777-3) 165 See_Comment L [Automated messa ge] The system which generated this result transmitted reference range: 166 - 358 10*3/?L. The reference range was not used to interpret this result as normal/abnormal. MPV (test code = 10230-9) 11.5 fL 9.5-12.9 NRBC/100 WBC (test code = 4733104953) 0.0 See_Comment [Automated Ariisto ssage] The system which generated this result transmitted reference range: 0.0 - 10.0 /100 WBCs. The reference range was not used to interpret this result as normal/abnormal. NRBC x10^3 (test code = 7677795944) See_Comment [Automated messa ge] The system which generated this result transmitted reference range: 10*3/?L. The reference range was not used to interpret this result as normal/abnormal. GRAN MAT (NEUT) % (test code = 770-8) 59.0 % IMM GRAN % (test code = 6711413435) 0.30 % LYMPH % (test code = 736-9) 28.6 % MONO % (test code = 5905-5) 7.7 % EOS % (test code = 713-8) 3.7 % BASO % (test code = 706-2) 0.7 % GRAN MAT x10^3(ANC) (test code = 5364106716) 5.55 10*3/uL 1.88-7.09 IMM GRAN x10^3 (test code = 2834659776) 0.03 10*3/uL 0.00-0.06 LYMPH x10^3 (test code = 731-0) 2.69 10*3/uL 1.32-3.29 MONO x10^3 (test code = 742-7) 0.72 10*3/uL 0.33-0.92 EOS x10^3 (test code = 711-2) 0.35 10*3/uL 0.03-0.39 BASO x10^3 (test code = 704-7) 0.07 10*3/uL 0.01-0.07 Lab Interpretation (test code = 88774-8) Abnormal [facility] and Screen - ONCE [id number] 11:10:00 * Test Item Value Reference Range Interpretation Comme nts ABO & RH (test code = 20) O Positive IAT (test code = 1185) Negative [facility] Urinalysis w/o Specific [id number] 15:57:00* Test Item Value Reference Range Interpretation Comme nts POCT PH U (test code = 3254) n/a 5-8 POCT U LEUK EST (test code = 3263) n/a Negative - Negative POCT U NIT (test code = 3262) n/a Negative - Negati ve POCT U PROT (test code = 3259) negative Negative - Negat anusha POCT U GLU (test code = 3256) normal Negative - Negati ve POCT U KETONE (test code = 3258) n/a Negative - Neg ative POCT U BLD (test code = 3257) n/a Negative - Negati ve [facility] Urinalysis w/o Specific [id number] 19:07:00* Test Item Value Reference Range Interpretation Comme nts POCT PH U (test code = 3254) n/a 5-8 POCT U LEUK EST (test code = 3263) n/a Negative - Negative POCT U NIT (test code = 3262) n/a Negative - Negati ve POCT U PROT (test code = 3259) Negative Negative - Negat anusha POCT U GLU (test code = 3256) Normal Negative - Negati ve POCT U KETONE (test code = 3258) n/a Negative - Neg ative POCT U BLD (test code = 3257) n/a Negative - Negati ve [facility] Urinalysis w/o Specific [id number] 19:19:00* Test Item Value Reference Range Interpretation Comme nts POCT PH U (test code = 3254) n/a 5-8 POCT U LEUK EST (test code = 3263) n/a Negative - Negative POCT U NIT (test code = 3262) n/a Negative - Negati ve POCT U PROT (test code = 3259) negative Negative - Negat anusha POCT U GLU (test code = 3256) negative Negative - Negati ve POCT U KETONE (test code = 3258) n/a Negative - Neg ative POCT U BLD (test code = 3257) n/a Negative - Negati ve [facility] Urinalysis w/o Specific [id number] 19:38:00* Test Item Value Reference Range Interpretation Comme nts POCT PH U (test code = 3254) n/a 5-8 POCT U LEUK EST (test code = 3263) n/a Negative - Negative POCT U NIT (test code = 3262) n/a Negative - Negati ve POCT U PROT (test code = 3259) Negative Negative - Negat anusha POCT U GLU (test code = 3256) Normal Negative - Negati ve POCT U KETONE (test code = 3258) n/a Negative - Neg ative POCT U BLD (test code = 3257) n/a Negative - Negati ve [facility] URINALYSIS W/O SPECIFIC [id number] 20:52:00* Test Item Value Reference Range Interpretation Comme nts POCT PH U (test code = 3254) n/a 5-8 POCT U LEUK EST (test code = 3263) n/a Negative - Negative POCT U NIT (test code = 3262) n/a Negative - Negati ve POCT U PROT (test code = 3259) Negative Negative - Negat anusha POCT U GLU (test code = 3256) Normal Negative - Negati ve POCT U KETONE (test code = 3258) n/a Negative - Neg ative POCT U BLD (test code = 3257) n/a Negative - Negati ve [facility] URINALYSIS W/O SPECIFIC [id number] 19:28:00* Test Item Value Reference Range Interpretation Comme nts POCT PH U (test code = 3254) n/a 5-8 POCT U LEUK EST (test code = 3263) n/a Negative - Negative POCT U NIT (test code = 3262) n/a Negative - Negati ve POCT U PROT (test code = 3259) negative Negative - Negat anusha POCT U GLU (test code = 3256) negative Negative - Negati ve POCT U KETONE (test code = 3258) n/a Negative - Neg ative POCT U BLD (test code = 3257) n/a Negative - Negati ve [facility] URINALYSIS W/O SPECIFIC [id number] 14:02:00* Test Item Value Reference Range Interpretation Comme nts POCT PH U (test code = 3254) n/a 5-8 POCT U LEUK EST (test code = 3263) n/a Negative - Negative POCT U NIT (test code = 3262) n/a Negative - Negati ve POCT U PROT (test code = 3259) negative Negative - Negat anusha POCT U GLU (test code = 3256) negative Negative - Negati ve POCT U KETONE (test code = 3258) n/a Negative - Neg ative POCT U BLD (test code = 3257) n/a Negative - Negati ve [facility] URINALYSIS W/O SPECIFIC [id number] 15:10:00* Test Item Value Reference Range Interpretation Comme nts POCT PH U (test code = 3254) n/a 5-8 POCT U LEUK EST (test code = 3263) n/a Negative - N egative POCT U NIT (test code = 3262) n/a Negative - Negati ve POCT U PROT (test code = 3259) neg Negative - Negat anusha POCT U GLU (test code = 3256) neg Negative - Negati ve POCT U KETONE (test code = 3258) n/a Negative - Neg ative POCT U BLD (test code = 3257) n/a Negative - Negati ve [facility] URINALYSIS W/O SPECIFIC [id number] 14:27:00* Test Item Value Reference Range Interpretation Comme nts POCT PH U (test code = 3254) n/a 5-8 POCT U LEUK EST (test code = 3263) n/a Negative - Negative POCT U NIT (test code = 3262) n/a Negative - Negati ve POCT U PROT (test code = 3259) Negative Negative - Negat anusha POCT U GLU (test code = 3256) Normal Negative - Negati ve POCT U KETONE (test code = 3258) n/a Negative - Neg ative POCT U BLD (test code = 3257) n/a Negative - Negati ve [facility] URIN[facility] W/O SPECIFIC [id number] 15:23:00* Test Item Value Reference Range Interpretation Comme nts POCT PH U (test code = 3254) N/A 5-8 POCT U LEUK EST (test code = 3263) N/A Negative - Negative POCT U NIT (test code = 3262) N/A Negative - Negati ve POCT U PROT (test code = 3259) Negative Negative - Negat anusha POCT U GLU (test code = 3256) Negative Negative - Negati ve POCT U KETONE (test code = 3258) N/A Negative - Neg ative POCT U BLD (test code = 3257) N/A Negative - Negati ve [facility] [id number] 20:28:00* Test Item Value Reference Range Interpretation Comme nts POCT PREG (test code = 1605) Positive On board controls acceptable with C Line (test code = 3574) Yes POCT PREG LOT # (test code = 3575) POCT PREG TEST DATE ( test code = 3576) [facility] [id number] 20:59:00* Test Item Value Reference Range Interpretation Comme nts POCT PREG (test code = 1605) Negative On board controls acceptable with C Line (test code = 3574) Yes POCT PREG LOT # (test code = 3575) POCT PREG TEST DATE ( test code = 3576) [facility] [id number] 20:59:00* Test Item Value Reference Range Interpretation Comme nts POCT PREG (test code = 1605) Negative On board controls acceptable with C Line (test code = 3574) Yes POCT PREG LOT # (test code = 3575) POCT PREG TEST DATE ( test code = 3576) [facility] History and Physical Notes Date/Time Note Provider Source 2023-08-04 07:43:16 TRIAGE HISTORY & PHYSICAL IDENTIFYING DATA Dominic Vazquez is 27 year old, Black or , 39w5d, female with JUMANA 08/06/2023, by Last Menstrual Period. : 1996 Primary Care Physician: PATIENT DOES NOT HAVE A PCP CHIEF COMPLAINT Induction at 39 wks HISTORY OF PRESENT ILLNESS Dominic Vazquez is a 27 year old female @ 39w5d +FM. No VB, LOF. + CTX. No pre-eclampsia sx or other complaints. PAST OBSTETRIC HISTORY OB History Para Term AB Living 4 2 2 1 2 SAB IAB Ectopic Multiple Live Births 1 0 2 # Outcome Date GA Lbr [place]/2nd Weight Sex Delivery Anes PTL Lv 4 Current 3 SAB 2019 2 Term 11/30/18 39w2d 3742 g F VAGINAL EPI DIEUDONNE 1 Term 03/26/15 40w0d 2920 g F NORMAL SPONT DIEUDONNE PAST MEDICAL HISTORY Problem list: Patient Active Problem List Diagnosis Date Noted Obesity in 04/15/2023 Circumvallate placenta in third trimester 03/31/2023 Obesity (BMI 30-39.9) 03/03/2023 Headache in , antepartum 02/25/2023 Seasonal allergies 02/25/2023 History of miscarriage, currently 01/06/2023 Elevated blood pressure reading without diagnosis of hypertension 01/06/2023 39 weeks gestation of 11/29/2018 High-risk in third trimester 05/20/2018 Operations: Past Surgical History: Procedure Laterality Date INSERT CERVICAL DILATOR 11/29/2018 Past Medical History: Diagnosis Date Breakthrough bleeding on control pills 12/04/2017 BV (bacterial vaginosis) 07/09/2017 Chlamydia 12/09/2017 Ovarian cyst 2017 CURRENT HEALTH STATUS Medications: Current Facility-Administered Medications Medication Dose Route Frequency Last Rate Last Admin carboprost (HEMABATE) injection 250 mcg 250 mcg Intramuscular Q2HPRN D5W-LR IV infusion 1,000 mL 1,000 mL IV Infusion TITRATE 125 mL/hr at 08/04/23 0441 1,000 mL at 08/04/23 0441 FENTanyl PF (SUBLIMAZE (PF)) injection 100 mcg 100 mcg Slow IV Push Q1HPRN lactated ringers IV infusion 500 mL 500 mL IV Infusion ONCE lactated ringers IV infusion 500 mL 500 mL IV Infusion PRN - SEE INSTRUCTIONS lactated ringers IV infusion 500 mL 500 mL IV Infusion PRN - SEE INSTRUCTIONS lidocaine 1% (PF) (XYLOCAINE) injection 0.3 mL 0.3 mL Infiltration PRN - SEE INSTRUCTIONS methylergonovine (METHERGINE) injection 0.2 mg 0.2 mg Intramuscular Q4HPRN miSOPROStoL (CYTOTEC) tablet 200 mcg 200 mcg Rectal PRN ondansetron (ZOFRAN (PF)) injection 4 mg 4 mg Slow IV Push Q8HPRN oxytocin (PITOCIN) 30 units in NS 500 mL IV infusion 600 mL/hr IV Infusion PRN oxytocin (PITOCIN) 30 units in NS 500 mL IV infusion 2-40 adela-units/min IV Infusion TITRATE 10 mL/hr at 08/04/23 07 10 adela-units/min at 08/04/23 07 sodium citrate-citric acid (BICITRA) 500-334 mg/5 mL solution 30 mL 30 mL Oral PRE-PROCEDURE ONCE sodium citrate-citric acid (BICITRA) 500-334 mg/5 mL solution 30 mL 30 mL Oral PRE-PROCEDURE ONCE terbutaline (BRETHINE) injection 0.25 mg 0.25 mg Subcutaneous PRN tranexamic acid (CYKLOKAPRON) 1,000 mg in NaCl 0.9% (NS) 250 mL piggyback 1,000 mg IV Piggyback PRN Allergies and drug reactions: Patient has no known allergies. HOME MEDICATIONS Medications Prior to Admission Medication Sig Dispense Refill Last Dose aspirin 81 mg EC tablet Take 1 tablet by mouth in the morning. 30 tablet 2 Taking loratadine 10 mg tablet Take 1 tablet by mouth in the morning. 30 tablet 2 Not Taking magnesium oxide 400 mg (241.3 mg magnesium) tablet Take 1 tablet by mouth in the morning. 30 tablet 2 Not Taking vit no.124/iron/folic ( VITAMIN ORAL) Take by mouth. Taking SOCIAL HISTORY Tobacco History: Social History Tobacco Use Smoking Status Former Types: Cigarettes Start date: 07/09/2009 Quit date: 06/21/2019 Years since quittin.1 Smokeless Tobacco Never Tobacco Comments 2 cigarettes/day Drug History: Social History Substance and Sexual Activity Drug Use Not Currently Alcohol History: Social History Substance and Sexual Activity Alcohol Use Not Currently FAMILY HISTORY Family History Problem Relation Age of Onset Cancer Father Breast Cancer Paternal Aunt Cancer Paternal Grandfather Arthritis NoFHx Asthma NoFHx defects NoFHx Colon Cancer NoFHx Ovarian Cancer NoFHx Uterine Cancer NoFHx Depression NoFHx Diabetes NoFHx Genetic NoFHx Heart NoFHx Hypertension NoFHx High cholesterol NoFHx Mental retardation NoFHx Neurological NoFHx Osteoporosis NoFHx Psychiatry NoFHx REVIEW OF SYSTEMS General: negative Constitutional: negative Eyes: negative ENT/Mouth: negative Cardiovascular: negative Respiratory: negative Gastrointestinal:negative Genitourinary: see HPI Musculoskeletal: negative Skin/breast: negative Neurological: negative Psychiatric: negative Endocrine: negative Hemat/Lymph: negative Allergic/Immuno:none VITAL SIGNS BP: (108-125)/(65-83) Temp: [36.7 ?C (98.1 ?F)-36.8 ?C (98.2 ?F)] Temp source: Oral (08/04 714) Pulse: [88-127] Resp: [18] SpO2: [96 %-100 %] Height: [168.9 cm (5' 6.5")] Weight: [96.7 kg (213 lb 3.2 oz)] BMI (calculated): [33.9] PHYSICAL EXAMINATIONS Gen: alert and oriented, well appearing, no distress CV: RRR, normal S1/S2, no m/r/g Resp: normal work of breathing, lungs CTAB Abd: gravid, soft, NTTP Ext: no calf tenderness or edema : SVE 1/50/-3, s/p AROM (clear fluid without complications) REVIEW OF LABORATORY, PATHOLOGY, AND RADIOLOGY DATA Lab results: Type & Screen HIV Hep B Syphilis Chlamydia ABO & RH Date Value Ref Range Status 08/04/2023 O Positive Final HIV Ag-Ab Multiplex Date Value Ref Range Status 09/20/2018 Non-reactive Non-reactive Final No components found for: "HBSHBSAG" Syphilis IgG/IgM Date Value Ref Range Status 08/08/2019 Non-reactive Non-reactive Final C. trachomatis Nucleic Acid Date Value Ref Range Status 07/07/2023 Negative Negative Final IAT Date Value Ref Range Status 08/04/2023 Negative Final Varicella Rubella Glucose Group B Strep CBC VZV IgG antibody Date Value Ref Range Status 01/22/2023 Positive Negative Final Rubella screen IgG Date Value Ref Range Status 01/22/2023 Positive Negative Final GLUC 1 HR Date Value Ref Range Status 06/01/2023 102 (L) 120 - 170 mg/dL Final No results found for: "CGBS" HGB Date Value Ref Range Status 08/04/2023 11.8 11.6 - 15.0 g/dL Final HCT Date Value Ref Range Status 08/04/2023 34.3 (L) 35.7 - 45.2 % Final PLT Date Value Ref Range Status 08/04/2023 165 (L) 166 - 358 10*3/?L Final Active Hospital Problems Diagnosis Date Noted Obesity in 04/15/2023 Circumvallate placenta in third trimester 03/31/2023 Obesity (BMI 30-39.9) 03/03/2023 39 weeks gestation of 11/29/2018 High-risk in third trimester 05/20/2018 Resolved Hospital Problems No resolved problems to display. Present on Admission: 39 weeks gestation of Circumvallate placenta in third trimester High-risk in third trimester Obesity (BMI 30-39.9) Obesity in Placenta Accreta Screening Prior ? : No Prior Uterine Surgery?: No Placenta low lying/previa in current ? : No Screening outcome: A positive screening outcome indicates a history of prior delivery or prior uterine surgery, AND the presence of either a placenta low lying/previa or ultrasound suspicion of PASD in the current . Negative screening. ASSESSMENT AND PLAN Dominic Vazquez is a 27 year old female @ 39w5d here for an elective induction. Induction - s/p AROM. pitocin per protocol - Cephalic presentation confirmed - GBS neg - EFW 7 lbs 4 oz on 07/22/[address] Reno, please see OB Summary for more details Michelle Reno MD 08/04/2023 10:22 AM [facility] Procedure Notes Date/Time Note Provider Source 2023-08-04 08:51:17 Associated Order(s): Central Neuraxial Block Central Neuraxial Block Date/Time: 08/04/2023 8:16 AM Performed by: German Puri SOLDERING MACHINE OPERATOR AUTOMATIC Authorized by: Meenakshi Sweeney MD Patient Location: OB End Time: 08/04/2023 8:32 AM Reason for Block: OB request, Patient request and Labor analgesia Staff: Resident/SOLDERING MACHINE OPERATOR AUTOMATIC: German Puri CRNA Performed by: resident/SOLDERING MACHINE OPERATOR AUTOMATIC Preanesthetic Checklist: patient identified, IV checked, risks and benefits explained, monitors and equipment checked, timeout performed, ob surgical consent/approval, pre-op evaluation, surgical consent, site marked, anesthesia consent, OB/surgical consent verified, ob/surgical consent verified and ob/surgical consent approval Procedure: Type of Neuraxial: Epidural Epidural Description: 1st attempt Sterility Prep cap, drape, gloves, hand hygiene and mask Sedation Level no sedation Patient Position: sitting Prep: Betadine and patient draped Monitoring: heart rate, continuous pulse ox, heart rate / toco and NIBP Location: lumbar (1-5) Lumbar: L4-L5 Approach: midline Technique: catheter and SUHA saline Guidance with: landmark technique} Epidural/Spinal [place] and/or Catheter: Epidural/Spinal Kit: BBjulian Needle Type: Tuohy Needle Gauge: 17 G Needle Length: 3.5 in (8.89 cm) Needle Insertion Depth: 6 Catheter Type: multiport Catheter Size: 19 G Catheter at Skin Depth: 11 Number of Attempts: 1 Test Dose: lidocaine 1.5% with epinephrine 1-to-200,000 and negative Dose: 3 cc Catheter Securement Method: Tegaderm, surgical tape and clear occlusive dressing Assessment: Sensory Level: above T10 Block Outcome: successful block, no apparent complications, pain relieved, patient tolerated procedure well, patient satisfied, patient comfortable, positive pain relief, appropriate motor block, appropriate sensory block and pain improved Procedure Assessment: patient tolerated procedure well with no complications Notes: Smooth and atraumatic, (+) Local, (+) STF YSIS SPECIALIST NACR-NURSE ONCOLOGY RN,CERTIFIED REGISTERED NURSE ONCOLOGY RN [facility] Notes Date/Time Note Provider Source 2024-02-16 13:56:12 Forms emailed as requested and last visit and discharge note from hospital stay included. Armando Gonzalez RN 02/16/2024 1:56 PM Armando Gonzalez RN [facility] 2024-02-16 12:25:27 Pt says forms from employer were filled out they are asking these forms to be emailed to them at [email or web address] they are also needing proof that she was high risk . Rosy Stefan [facility] 2024-01-26 10:14:52 Patient dropped off medical credit form for employer. Form completed to reflect 12 weeks of maternity leave. 08/04/23-10/27/23. Dominic will parts picker form from clinic. Armando Gonzalez RN 01/26/2024 10:15 AM Armando Gonzalez RN [facility] 2023-09-09 15:14:52 FMLA received. Patient unsure when she is returning to work at this time. Patient will contact clinic with date when available. Armando Gonzalez RN 09/09/2023 3:22 PM YSIS SPECIALIST Armando Gonzalez RN [facility] 2023-09-09 14:33:51 Order received from [employer] breast pumps. Signed and faxed back. Armando Gonzalez RN 09/09/2023 2:34 PM YSIS SPECIALIST Armando Gonzalez RN [facility] 2023-08-05 18:15:19 Problem: Falls, Risk of Goal: Absence of falls Outcome: Adequate for discharge Problem: Discharge Planning - Goal: Adequate for discharge Outcome: Adequate for discharge Goal: Mood stable Outcome: Adequate for discharge YSIS SPECIALIST Sharron Arrieta RN [facility] 2023-08-05 11:15:00 This note was copied from a baby's chart. Evaluation Situation Initial visit Background Baby girl is 1 day old, born weighing 3340g, and has lost -2.54% of weight. Gestational Age: 39w5d at INFANT FEEDING STATUS Exclusively Formula supplementation via bottle MATERNAL STATUS Hand expressing Assessment, Recommendations, Education Assisted mom with positioning and asymmetrical latch technique in the football hold. Initially the baby was latched shallow, but after giving more neck and back support she was able to achieve a deeper latch. The baby suckled in coordinated bursts with audible swallows. Encouraged mom to stimulate the baby to keep the baby engaged in feeding and actively sucking while at the breast. Mom denied nipple pain with feeding. Mom's nipple was rounded upon release. I discussed with mom the stages of milk production and when she can expect to see or feel an increase in her milk supply. I discussed with mom the importance of achieving a deep latch to help prevent nipple damage and to help infant transfer more milk. Mom instructed on how to contact Security System Engineer for assistance with feedings or to answer questions while in the hospital. Mom verbalized understanding. Assessment (most recent) Assessment - 08/05/23 1115 General Information Visit Initial Mom's age (years) 27 years Gestational age 39 weeks 4 Parity 3 Living Children 3 Feeding plan Breast and Formula Breastfeed previously Yes Duration 1 year plans As long as possible Breast Pump Has Breast Pump Electric Delivery method Infant Oral Assessment Oral assessment New assessment Date of 08/04/23 Time of 1736 Infant location Mother Baby Unit Chin Normal Palate assessment Normal Tongue assessment Tip indented Restricted tongue motion observed None Breast Assessment Breast Assessment Initial Symmetry Symmetrical Size L (D-DD) Shape Rounded;Pendulous Nipple & Areola Assessment Left Areola Pliable Right Areola Pliable Left Nipple Colostrum visible;Everted;Short Right Nipple Colostrum visible;Everted;Short Literature Resources Resources Understanding Mother and Baby Care Education Infant hunger cues;On-demand feeds at least 8 or more over 24 hours;Benefits of breastmilk;Hand expression;Risk of formula supplementation;Delay of pacifier/artificial nipples up to 4 weeks;Benefits of skin to skin contact;Signs of an effective latch; stomach size;Calming techniques;2nd day/growth spurt cluster feeds;Position changes;Breaking seal;Burping;Benefits of breast massage and hand expression;Engorgement signs and treatment;Risks of mastitis and signs, seek medical attention immediately;Ways to increase milk supply Handouts given Green[place]ic Security System Engineer Observation Assist with latch Position left side Football;Infant latched effectively;Suckled in coordinated bursts;Audible swallows Interventions Placed skin to skin;Motherlove nipple cream;Breast massage;Taught hand expression Mother demonstrated teach back of Breast massage and hand expression;Positioning and latching infant at breast Follow up Mom will call staff;Follow up in hospital Recommended Feeding Plan Recommended feeding plan On-demand , 8-12 times in 24 hours not to exceed 6 hours between feeds;Frequent [id number] time with parents KASHIF Wise, RN, IBCLC [place] Matthew RN [facility] 2023-08-04 19:50:49 Problem: Falls, Risk of Goal: Absence of falls Outcome: Progressing as expected Problem: Discharge Planning - Goal: Adequate for discharge Outcome: Progressing as expected Goal: Mood stable Outcome: Progressing as expected Problem: Intrapartum process (including labor pain) Goal: Absence of or reduction of complications of labor Outcome: Resolved Goal: Able to cope with pain Outcome: Resolved Goal: Adequate to move to next level of care Outcome: Resolved Goal: Reduction in pain sensation Outcome: Resolved OH Kendall RN [facility] 2023-08-04 19:09:51 Problem: Intrapartum process (including labor pain) Goal: Absence of or reduction of complications of labor 08/04/20231908 by Susu Forrest RN Outcome: Progressing as expected 08/04/2023 0745 by Susu Forrest RN Outcome: Progressing as expected Goal: Able to cope with pain 08/04/20231908 by Susu Forrest RN Outcome: Progressing as expected 08/04/2023 0745 by Susu Forrest RN Outcome: Progressing as expected Goal: Adequate to move to next level of care 08/04/20231908 by Susu Forrest RN Outcome: Progressing as expected 08/04/2023 0745 by Susu Forrest RN Outcome: Progressing as expected Goal: Reduction in pain sensation 08/04/20231908 by Susu Forrest RN Outcome: Progressing as expected 08/04/2023 0745 by Susu Forrest RN Outcome: Progressing as expected of female @ 1736 YSIS SPECIALIST Susu Forrest RN [facility] 2023-08-04 18:43:07 Patient: Dominic Vazquez Procedure Summary Date: 08/04/23 Room / Location: Anesthesia Start: 812 Anesthesia Stop: 1838 Procedure: CENTRAL NEURAXIAL BLOCK Diagnosis: Scheduled Providers: Responsible Provider: Lio Boswell MD Anesthesia Type: Epidural ASA Status: 2 Anesthesia Type: Epidural Last vitals BP 127/67 (08/04/231829) Temp Pulse 99 (08/04/231829) Resp SpO2 98 % (08/04/231829) There were no known notable events for this encounter. Anesthesia Post Evaluation Comments: Anesthesia ADNOIS Post Operative Faculty Note Date of service: 08/04/2023 Patient is s/p labor epidural placement and removal. Patient examined, patient awake. Patient participation in post anesthesia evaluation: Block not fully resolved, as expected. Patient participated otherwise. Patient advised about fall precautions. Vital Signs: BP 127/67 | Pulse 99 | Temp 36.7 ?C (98.1 ?F) (Oral) | Resp 20 | Ht 1.689 m (5' 6.5") | Wt 96.7 kg (213 lb 3.2 oz) | LMP 10/30/2022 (Exact Date) | SpO2 98% | Unknown | BMI 33.90 kg/m? Pain: Scale used: 0 - 10 Ratin Nausea and vomiting: Not present. Post operative/post procedure hydration status: Euvolemic. Post-operative course: Block resolving appropriately, and patient advised about fall precautions as noted above. Complications: No apparent complications Lio Boswell MD 08/04/2023 18:43 [facility] AN-ANESTHESIOLOGY ANESTHESIOLOGIST [facility] 2023-08-04 17:49:44 DELIVERY BY SPONTANEOUS VAGINAL DELIVERY Delivery Date: 08/04/2023 Delivery Time: 5:36 PM Delivery Summary Dominic Vazquez is a 27 year old female @ 39w5d with circumvallate placenta. The patient was admitted to the Labor & Delivery unit for induction at 39 weeks. Delivery Physician: Michelle Reno MD Intrapartum Anesthesia/Analgesia: Epidural Mode of Delivery: Delivery of webber fetus with cephalic presentation Fetus Spontaneous vaginal delivery of head with cephalic position, right occipital anterior. As the head crowned and distended the perineum, no episiotomy was performed. A blue towel was used to protect the perineum as the head crowned and delivered. The other hand was used to exert pressure on the occiput to control the delivery of the head. The perineum was pushed with a towel-draped hand as the head and mouth was delivered over the perineum. The head was allowed to rotate externally to achieve natural body posture. Examination of neck revealed nuchal cord, which was Umbilical cord not reducted - body delivered through umbilical cord. The shoulder was delivered by gentle downward traction applied to head and downward traction for the delivery of anterior shoulder. This was followed by upward traction with delivery of posterior shoulder and body. After the delivery of , bulb suction was performed from ororpharynx and nostril with removal of clear amniotic fluid. A normal, female was delivered. The umbilical cord was double clamped, cut and the infant was handed off the field to the circulating nurse Placenta Placenta was delivered spontaneously while the abdominal hand lifted the uterus cephalad and other hand keeping the umbilical cord slightly taut. Laceration Laceration Repair: No laceration repair needed. Fourth Stage Fourth stage of labor was managed by uterine massage with abdominal hand and infusion 30 units of pitocin mixed with intravenous fluid and methergine x 1. EBL: 600 Complications: None Weight: 3340 g 1 Minute 5 Minute 10 Minute Totals: 8 9 Michelle Reno MD 08/04/2023 5:50 PM [facility] 2023-08-04 08:09:34 Name/ MRN / Age / Gender: Dominic Vazquez, [id number] 27 year old female BMI: Estimated body mass index is 33.9 kg/m? as calculated from the following: Height as of this encounter: 1.689 m (5' 6.5"). Weight as of this encounter: 96.7 kg (213 lb 3.2 oz). Allergies: Patient has no known allergies. Last Vitals: BP Readings from Last 1 Encounters: 08/04/23 118/73 Pulse Readings from Last 1 Encounters: 08/04/23 106 SpO2 Readings from Last 1 Encounters: 08/04/23 99% Date of Surgery: Surgeon: * Surgery not found * Procedure: CENTRAL NEURAXIAL BLOCK OR Location: * No surgery found * Anesthesia Preop Eval (physical exam) Anesthesia Preop: [id number] NPO Status Verified Clear Liquids: > 2 Hours Solid Food/Non-Clear Liquids: > 8 Hours PONV Risk Factors: female and non-smoker Anesthesia History Anesthesia History Negative Previous Anesthetics/Airways Cardiovascular Negative Cardiac ROS METS: 5-6 Pulmonary Negative Pulmonary ROS Neuro/Musculoskeletal Negative Neuro/Musculosketal ROS GI/Hepatic (+) GERD Hematology Negative Hematology ROS Renal Negative Renal ROS Skin Negative Skin ROS (+) Current IV access and 20g Endo/Other Negative Endo/Other ROS Other SPRAYER INSECTICIDE P: 2 Pediatric Pediatric N/A N/A Preoperative Medication Instructions Continue taking all prescribed medications except: MICHELINE inhibitors, ARBs, diuretics, all oral diabetes medications Anticoagulant Therapy: Defer to surgeons Insulin: Take 1/2 dose the night prior to surgery. Hold on DOS. Phentermine: Alert [facility] anesthesiologist SGLT2 Inhibitors: "gliflozins" to be held for 3 days prior to elective surgeries GLP1 Agonosit: stop 7 days prior to surgery MAC Cases: Continue taking MICHELINE inhibitors and ARBs ASA Classification ASA: 2 Current Medications: No outpatient medications have been marked as taking for the 08/04/23 encounter (Hospital Encounter). Previous Surgeries: Past Surgical History: Procedure Laterality Date INSERT CERVICAL DILATOR 11/29/2018 Anesthesia Physical Exam General alert and oriented x 3 Neuro/Psych neurological Dental no notable dental hx Abdominal (+) gravid Airway Mallampati score:II TM distance:> 5 cm Neck ROM: full Mouth opening:normal Extremity Normal extremity Pulmonary pulmonary exam normal Other Cardiovascular Rhythm:regular Rate: normal Anesthesia Plan ASA Status: 2 Plan discussed during pre-op evaluation: Epidural, Spinal and General Anesthetic plan on DOS: Epidural Plan to include: IV induction Anesthesia plan discussed with: patient or investment representative Post-Operative Analgesia: routine analgesia & antiemetics Recovery Plan: LDR Additional comments: [facility] AN-ANESTHESIOLOGY ANESTHESIOLOGIST [facility] 2023-08-04 07:46:01 Problem: Intrapartum process (including labor pain) Goal: Absence of or reduction of complications of labor Outcome: Progressing as expected Goal: Able to cope with pain Outcome: Progressing as expected Goal: Adequate to move to next level of care Outcome: Progressing as expected Goal: Reduction in pain sensation Outcome: Progressing as expected Problem: Falls, Risk of Goal: Absence of falls Outcome: Progressing as expected [facility] 2023-08-04 07:10:52 Name/ MRN / Age / Gender: Dominic Vazquez, [id number] 27 year old female BMI: Estimated body mass index is 33.9 kg/m? as calculated from the following: Height as of this encounter: 1.689 m (5' 6.5"). Weight as of this encounter: 96.7 kg (213 lb 3.2 oz). Allergies: Patient has no known allergies. Last Vitals: BP Readings from Last 1 Encounters: 08/04/23 108/65 Pulse Readings from Last 1 Encounters: 08/04/23 90 SpO2 Readings from Last 1 Encounters: 08/04/23 97% Date of Surgery: Surgeon: * Surgery not found * Procedure: LABOR CONSULT OR Location: * No surgery found * Anesthesia Preop Screen (no physical exam) Anesthesia Preop: [id number] NPO Status Verified Clear Liquids: > 2 Hours Solid Food/Non-Clear Liquids: > 8 Hours PONV Risk Factors: female and non-smoker Anesthesia History Anesthesia History Negative Previous Anesthetics/Airways Cardiovascular Negative Cardiac ROS Pulmonary Negative Pulmonary ROS Neuro/Musculoskeletal Negative Neuro/Musculosketal ROS GI/Hepatic (+) GERD Hematology Negative Hematology ROS Renal Negative Renal ROS Skin Negative Skin ROS (+) Current IV access and 20g Endo/Other Negative Endo/Other ROS Other SPRAYER INSECTICIDE P: 2 Pediatric Pediatric N/A N/A Preoperative Medication Instructions Continue taking all prescribed medications except: MICHELINE inhibitors, ARBs, diuretics, all oral diabetes medications Anticoagulant Therapy: Defer to surgeons Insulin: Take 1/2 dose the night prior to surgery. Hold on DOS. Phentermine: Alert [facility] anesthesiologist SGLT2 Inhibitors: "gliflozins" to be held for 3 days prior to elective surgeries GLP1 Agonosit: stop 7 days prior to surgery MAC Cases: Continue taking MICHELINE inhibitors and ARBs ASA Classification ASA: 2 Current Medications: No outpatient medications have been marked as taking for the 08/04/23 encounter (Hospital Encounter). Previous Surgeries: Past Surgical History: Procedure Laterality Date INSERT CERVICAL DILATOR 11/29/2018 Anesthesia Physical Exam General alert and oriented x 3 Neuro/Psych neurological Dental no notable dental hx Abdominal (+) gravid Airway Mallampati score:II TM distance:> 5 cm Neck ROM: full Mouth opening:normal Extremity Normal extremity Pulmonary pulmonary exam normal Other Cardiovascular Rhythm:regular Rate: normal Anesthesia Plan ASA Status: 2 Plan discussed during pre-op evaluation: Epidural, Spinal and General Anesthetic plan on DOS: Epidural Plan to include: IV induction Anesthesia plan discussed with: patient or investment representative Post-Operative Analgesia: routine analgesia & antiemetics Recovery Plan: LDR Additional comments: YSIS SPECIALIST NACR-NURSE ONCOLOGY RN,CERTIFIED REGISTERED NURSE ONCOLOGY RN [facility] 2023-08-04 04:50:30 Problem: Intrapartum process (including labor pain) Goal: Absence of or reduction of complications of labor Outcome: Progressing as expected Goal: Able to cope with pain Outcome: Progressing as expected Goal: Adequate to move to next level of care Outcome: Progressing as expected Goal: Reduction in pain sensation Outcome: Progressing as expected Problem: Falls, Risk of Goal: Absence of falls Outcome: Progressing as expected YSIS SPECIALIST [facility] 2023-07-29 12:25:16 Pt stated that she will keep the date of 08/04/23. Rafael advised. NESHA DALAL RN 07/29/2023 12:25 PM YSIS SPECIALIST Nesha Dalal RN [facility] 2023-07-29 10:00:00 Age: [age] year old GA: 38w6d -Doing well - Decreased FM since yesterday. Patient states that since she been on the monitors, she has feel more movements. NST reactive and reassuring. - Circumvallate placenta: Appropriate interval growth on 07/22/2023 ultrasound. EFW 7 pounds 4 ounces, 56 percentile. - Induction scheduled for 39 wks on 07/30/23. Patient wants to change it to 08/04/23 due to daughter having an appointment on 07/30/23. Offered 07/31/23 but patient wants to keep 08/04/23 -Daily kick counts and labor precautions given - follow-up in 4-6 weeks for visit [facility] 2023-07-28 13:02:[address] Reno: Next available 08/04/23. Patient okay with 08/04/23 at 0400. Patient scheduled for 08/04/2023. visit scheduled for 07/29/23. Armando Gonzalez RN 07/28/2023 1:07 PM OH Gonzalez RN [facility] 2023-07-28 11:51:27 See telephone encounter. OH Gonzalez RN [facility] 2023-07-28 11:39:13 Returned patients call. Patient states she is needing to move her induction date. The earliest she can do is 08/02/2023. Patient advised I would speak with Dr. Reno. Armando Gonzalez RN 07/28/2023 11:39 AM [facility] 2023-07-28 11:23:59 Patient is requesting to speak to Dr. Reno regarding her induction, she would like to do it on Thursday08/02/2023 I possible. OH Haro [facility] 2023-07-23 13:58:04 [employer] message sent. NESHA DALAL RN 07/23/2023 1:58 PM [place] Dalal RN [facility] 2023-07-23 13:34:40 Patient states she is going in on 07/30 at 4 am, she wants to know what time Dr. Reno will go to the hospital to check on her that day. She is requesting a call back. OH Haro [facility] 2023-07-23 13:15:00 Age: [age] year old GA: 38w0d -Doing well without concerns - Circumvallate placenta: Appropriate interval growth on 07/22/2023 ultrasound. EFW 7 pounds 4 ounces, 56 percentile. - Induction scheduled for 39 wks on 07/30/23 unless clinically indicated otherwise -Daily kick counts and labor precautions given - follow-up in 4-6 weeks for visit [facility] 2023-03-31 09:00:00 Formatting of this n ote might be different from the original. Age: [age] year old GA: 21w5d Dominic Vazquez is a 27 y.o. female who presented to clinic for scheduled ALFREDO visit at 21w5d gestation. Supervision of high risk in second trimester 21 weeks gestation of - Endorses positive movement - Denies loss of fluid, vaginal bleeding, vaginal discharge, or contractions - POCT urinalysis w/o specific gravity; negative results - MS AFP negative for OSB screening Second trimester education - Continue healthy diet, light exercise, and hydration with water (at least 64 ounces) - Monitor for vaginal bleeding, contractions, or loss of fluid - Symptoms of preeclampsia include headache, visual disturbances, epigastric (under right rib) pain, and/or elevated blood pressure - Symptoms of diabetes include increased hunger, increased urination and increased thirst (Will obtain one hour glucose tolerance test approximately 28 weeks gestation) - If blood type is RH negative, Rhogam will be administered at 28 weeks gestation - Contact clinic for any concerns 3. Circumvallate placenta during in second trimester, antepartum - Patient will receive serial growth ultrasounds during - Patient will be seen per Dr. Reno on 04/13/2023; sooner as indicated - monitor for signs of vaginal bleeding, abdominal pain, decreased movement - Present to ED for any concerns of the above symptoms RTC on 04/13/[address] Reno; sooner as indicated. I have seen and examined the patient and agreed with the note above Lorraine Zavala NP 03/31/2023 10:26 AM [facility] 2023-03-27 13:00:00 Formatting of this n ote might be different from the original. Reviewed. Patient with appointment of 03/31/2023. Plan to review results. Lorraine Zavala NP 03/28/2023 12:01 PM [facility] 2023-03-03 10:45:00 Formatting of this n ote is different from the original. Images from the original note were not included. Venipuncture collection performed by clean technique on the left anticubitus. Total of 1 attempts were made. Slight pressure and a bandage/dressing were applied to the site(s). The patient experienced no complications. The following specimens were processed according to instructions and sent to [facility] laboratories per lab order on 03/03/2023 : LT BLUE SST 1 RED LAV PPT DK GREEN (LiHep) DK GREEN (SodH) ZACARIAS DK BLUE (K2) DK BLUE (S) ACD Blood Culture NIPT/NTD [facility] 2023-03-03 10:15:00 Formatting of this n ote might be different from the original. Age: [age] year old GA: 17w5d Doing well, no complaints. New OB labs wnl Panorama-low risk, female/[facility] MsAFP ordered today Anatomy scan scheduled for 03/23/2023 Pap smear collected today. FU in 4 wks for PN visit [facility] 2023-02-12 08:00:00 Formatting of this n ote might be different from the original. Gave patient 50g Glucola at 0758 for a 1 hour GTT. Patient finished glucola at 0800 Venipuncture scheduled at 0900 No Allergies to dye Joel Moss 02/12/2023 8:01 AM [facility] 2023-02-12 08:00:00 Formatting of this n ote is different from the original. Images from the original note were not included. Venipuncture collection performed by clean technique on the right anticubitus. Total of 1 attempts were made. Slight pressure and a bandage/dressing were applied to the site(s). The patient experienced no complications. The following specimens were processed according to instructions and sent to [facility] laboratories per lab order on 02/12/2023 LT BLUE SST 1 RED LAV PPT DK GREEN (LiHep) DK GREEN (SodH) ZACARIAS DK BLUE (K2) DK BLUE (S) ACD Blood Culture NIPT/NTD Patient has been identified by and name and was provided with cup, antiseptic towelette, and clean catch instructions. 1 urine specimen(s) sent. Unpreserved 1 Urine Culture Aptima tube Other urine [facility] 2023-02-03 09:30:00 Formatting of this n ote might be different from the original. Age: [age] year old GA: 13w5d Dominic Vazquez is a 27 y.o. female who presented to clinic for scheduled ALFREDO visit at 13w5d gestation. Supervision of high risk in first trimester 13 weeks gestation of Pap smear of cervix declined - Denies loss of fluid, vaginal bleeding, vaginal discharge, or contractions - POCT urinalysis w/o specific gravity; negative results - Consult MFM ordered for anatomy ultrasound in second trimester. - Continues daily vitamin - Desires pap screening at future visit; not today First trimester education - Contact clinic for symptoms of vaginal bleeding or spotting, an increased amount of pelvic pain, or symptoms of urinary tract infection - Mild lower pelvic pain is normal (Round ligament pain) - Continue healthy diet, increased hydration with water (at least 64 ounces), and light exercise - Continue daily vitamins 4. Seasonal allergies 5. Headache in , antepartum - Denies symptoms of preeclampsia - BP 108/72 - Denies visual disturbances or epigastric pain - Complains of seasonal allergies - Magnesium oxide 400mg tablet, take one tablet, orally, once daily for prevention of headaches - May take 500mg Tylenol OTC for headache with a small amount of caffeinated beverage. - Do not take more than 2000mg of Tylenol daily - Drink adequate amounts of water (at least 64 ounces daily - Loratadine 10mg tablet, take one tablet, orally, daily for treatment of allergy symptoms - RTC if symptoms worsen or do not improve RTC in four weeks; sooner as indicated. I have seen and examined the patient and agreed with the note above Lorraine Zavala NP 02/26/2023 9:52 AM [facility]
[2024-02-26 13:18] LABS: Absolute Basophils 0.1 K/uL (0-0.5); Absolute Eosinophils 0.2 K/uL (0-0.5); Absolute Lymphocytes (CBC) 2.1 K/uL (0.7-4.9); Absolute Monocytes 0.3 K/uL (0.1-1.3); Absolute Neutrophil 4.2 K/uL (1.8-8.0); Basophils % 0.8 % (0-1.3); Eosinophils % 3.2 % (0-4.4); Hematocrit 39.2 % (36.0-45.0); Hemoglobin 12.9 g/dL (12.0-15.0); Lymphocytes % 30.5 % (15.3-44.8); MCH 29.2 pg (27.0-35.0); MCHC 32.9 g/dL (32.0-36.0); MCV 88.9 fL (80-100); MPV 8.2 fL (7.6-11.3); Monocytes % 4.3 % (3.3-12.3); Neutrophils % 61.2 % (41.7-73.7); Platelets 256 thou/uL (152-406); RBC Red Blood Cell Count 4.41 M/uL (3.86-4.86); Red Cell Distribution Width 12.7 % (12.1-15.2)
[2024-02-26] MEDS ORDERED: METOCLOPRAMIDE 10 MG/2mL INJ ONE (13:24)
[2024-02-26] MEDS ORDERED: DIPHENHYDRAMINE 50 MG/ML VIAL ONE (13:24)
[2024-02-26] MEDS ORDERED: LIDOCAINE 4% PATCH ONE (13:24)
[2024-02-26] MEDS ORDERED: NA CHLORIDE 0.9% 1,000 ML ONE (13:24)
[2024-02-26 13:31] LABS: Anion Gap 7.9 mEq/L (5.0-15.0); Potassium 3.9 mEq/L (3.5-5.1)
--- NOTE | 2024-02-26 14:04 | RAD REPORT ---
EXAM DESCRIPTION: CT - Head Brain Wo Cont - 02/26/2024 1:36 pm CLINICAL HISTORY: HEADACHE COMPARISON: No comparisons TECHNIQUE: Noncontrast head CT images were obtained without IV contrast. Multiplanar reformats were generated and reviewed. All CT scans are performed using dose optimization technique as appropriate and may include automated exposure control or mA/KV adjustment according to patient size. FINDINGS: No intracranial hemorrhage, mass, or edema. Midline structures are unremarkable. Normal ventricular caliber for age. Petty-white matter differentiation is preserved, without evidence of acute infarct. No abnormal extra- axial fluid collections. Mastoid air cells and visualized portions of the paranasal sinuses are clear. No acute bony findings. IMPRESSION: No evidence of an acute intracranial process.
--- NOTE | 2024-02-26 14:48 | EDPHYS ---
Physician Documentation [facility] Name: Nette Fabian Age: 28 yrs Sex: Female : 1995 Arrival Date: 02/26/2024 Time: 11:56 Bed 13 Private MD: ED Physician Renetta Ascencio HPI: 02/25 13:15 This 28 yrs old Black Female presents to ER via Ambulatory with complaints of Headache, sd2 Nausea, Neck Problem - lump on neck. 13:16 28-year-old female presents with chief complaint of 3-day history of left-sided sd2 headache with associated nausea and vomiting as well as photophobia and phonophobia. She reports a history of multiple headaches in the past that she is able to usually relieved with BC powder. She did take Tylenol at home but was unable to take anything else due to currently breast-feeding. She also reports a lump on the back of the right side of her neck.. 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 - Infectious Disease History:: Denies. - Social history:: Smoking status: Patient denies any tobacco usage or history of. ROS: 13:16 Constitutional: Negative for fever, chills, and weight loss, Eyes: Negative for injury, sd2 pain, redness, and discharge, positive for photophobia Neck: Negative for injury, pain, and positive for swelling Cardiovascular: Negative for chest pain, palpitations, and edema, Respiratory: Negative for shortness of breath, cough, wheezing. Abdomen/GI: Negative for abdominal pain, diarrhea. Positive for nausea and vomiting. : Negative for dysuria, urinary frequency, hesitancy, urgency and hematuria. MS/Extremity: Negative for injury and deformity, Skin: Negative for injury, rash, and discoloration, Neuro: Positive for headache. Negative for numbness and tingling. Exam: 13:16 Constitutional: This is a well developed, well nourished patient who is awake, alert, sd2 and in no acute distress. Head/Face: Normocephalic, atraumatic. Eyes: EOMI, normal conjunctiva bilaterally Neck: Trachea midline, no thyromegaly or masses palpated, and no cervical lymphadenopathy. Supple, full range of motion without nuchal rigidity, or vertebral point tenderness. No Meningismus. There is a palpable muscle spasm of the right cervical paraspinal musculature. Chest/axilla: Normal chest wall appearance and motion. Nontender with no deformity. Cardiovascular: Regular rate and rhythm with a normal S1 and S2. No gallops, murmurs, or rubs. 2+ distal pulses. Respiratory: Lungs have equal breath sounds bilaterally, clear to auscultation and percussion. No rales, rhonchi or wheezes noted. No increased work of breathing, no retractions or nasal flaring. Abdomen/GI: Soft, non-tender, with normal bowel sounds. No guarding or rebound. No evidence of tenderness throughout. Skin: Warm, dry with normal turgor. Normal color with no rashes, no lesions, and no evidence of cellulitis. MS/ Extremity: Pulses equal, no cyanosis. Neurovascular intact. Full, normal range of motion. Psych: Awake, alert, with orientation to person, place and time. Behavior, mood, and affect are within normal limits. Vital Signs: 12:07 BP 130 / 86; Pulse 75; Resp 16; Temp 97.4(O); Pulse Ox 99% ; Weight 93.44 kg; Height 5 tl4 ft. 6 in. ; Pain 9/10; 13:19 BP 107 / 76; Pulse 79; Resp 20; Pulse Ox 100% on R/A; kj2 14:41 BP 115 / 68; Pulse 57; Resp 18; Pulse Ox 100% on R/A; kj2 12:07 Body Mass Index 33.25 (93.44 kg, 167.64 cm) tl4 12:07 Pain Scale: Adult tl4 [place] Coma Score: 13:16 Eye Response: spontaneous(4). Motor Response: obeys commands(6). Verbal Response: sd2 oriented(5). Total: 15. MDM: 12:52 Patient medically screened. sd2 13:16 Differential diagnosis: Tension headache, migraine headache, muscular spasm, occipital sd2 neuralgia, doubt meningitis, doubt intracranial hemorrhage among others. Data reviewed: vital signs, nurses notes, lab test result(s), radiologic studies. 14:45 I considered the following discharge prescriptions or medication management in the 2 emergency department Medications were administered in the Emergency Department. See MAR. Counseling: I had a detailed discussion with the patient and/or guardian regarding the historical points, exam findings, and any diagnostic results supporting the discharge/admit diagnosis, lab results, radiology results, the need for outpatient follow up, to return to the emergency department if symptoms worsen or persist or if there are any questions or concerns that arise at home. ED course: Labs reassuring. pt advised of plan for continued supportive care at home and need for outpatient follow up with PCP and neurology due to recurrent headaches. She is comfortable with plan for discharge and outpatient follow up and verbalizes understanding of return precautions. She wants to receive the medication and go home and does not want to wait to see if her headache improves first.. 02/25 12:58 Order name: CBC with Diff; Complete Time: 14:07 sd2 02/25 12:58 Order name: BMP; Complete Time: 14:07 sd02/25 12:58 Order name: Test, Serum; Complete Time: 15:09 sd02/25 12:59 Order name: CT Head Brain wo Cont; Complete Time: 14:07 sd2 Administered Medications: 14:40 Drug: diphenhydrAMINE IVP 25 mg IVP once Route: IVP; Site: right antecubital; kj2 15:12 Follow up: Response: No adverse reaction kj2 14:40 Drug: Lidoderm Topical Patch 5 % (700 mg/patch) 1 patches Topical once; leave on for 12 kj2 hours; cover most painful area; may cut into smaller pieces Route: Topical; Site: affected area; 15:11 Follow up: Response: No adverse reaction kj2 14:42 Drug: NS 0.9% IV 1000 ml IV at 1 bolus Per protocol; 1000 mL bolus Route: IV; Rate: 1 kj2 bolus; Site: right antecubital; 15:12 Follow up: IV Status: Completed infusion kj2 14:42 Drug: metoCLOPramide IVP 10 mg IVP once; over 1 to 2 minutes Route: IVP; Site: right kj2 antecubital; 15:12 Follow up: Response: No adverse reaction kj2 Disposition Summary: 08/02/24 14:47 Discharge Ordered Problem: new sd2 Symptoms: have improved sd2 Condition: Stable sd2 Diagnosis - Headache sd2 - Muscle spasm of neck sd2 Followup: sd2 - With: Private Physician - When: 2 - 3 days - Reason: Recheck today's complaints, Continuance of care, Re-evaluation by your physician Followup: sd2 - With: Jose Cespedes MD - When: - Reason: Recheck today's complaints, Continuance of care Discharge Instructions: - Discharge Summary Sheet sd2 - Migraine Headache sd2 - Muscle Cramps and Spasms sd2 Forms: - Medication Reconciliation Form sd2 - Antibiotic Education sd2 - Prescription Opioid Use sd2 - Patient Portal Instructions sd2 - Leadership Thank You Letter sd2 Signatures: Dispatcher [employer] Renetta Pillai MD MD sd2 David Ware RN RN tl4 Nani Ahmadi RN RN kj2
--- NOTE | 2024-02-26 14:48 | ER ---
Nurse's Notes [facility] Name: Nette Fabian Age: 28 yrs Sex: Female : 1995 Arrival Date: 02/26/2024 Time: 11:56 Bed 13 Private MD: Diagnosis: Headache;Muscle spasm of neck Presentation: 02/25 12:07 Chief complaint: Patient states: Pt c/o severe headache, nausea, vomiting since tl4 Thursday. No relief with Tylenol. Pt is and unable to take any other OTC medications. Coronavirus screen: headache, nausea, vomiting. Ebola Screen: No symptoms or risks identified at this time. Initial Sepsis Screen: Does the patient meet any 2 criteria? No. Patient's initial sepsis screen is negative. Does the patient have a suspected source of infection? No. Patient's initial sepsis screen is negative. Risk Assessment: Do you want to hurt yourself or someone else? Patient reports no desire to harm self or others. Onset of symptoms was February 24, 2024. 12:07 Method Of Arrival: Ambulatory tl4 12:07 Acuity: NED 3 tl4 Triage Assessment: 12:09 Headache History: The patient has had previous headaches and this one is different than tl4 previous episodes, and this one is more severe than previous episodes. General: Appears distressed, uncomfortable, Behavior is crying. Pain: Pain currently is 9 out of 10 on a pain scale. Pain began gradually, 2-3 days ago. Also complains of nausea. EENT: No signs and/or symptoms were reported regarding the EENT system. Neuro: Level of Consciousness is awake, alert, obeys commands, Oriented to person, place, time, situation, Reports headache. Cardiovascular: Capillary refill < 3 seconds Patient's skin is warm and dry. Respiratory: Airway is patent Respiratory effort is even, unlabored, Respiratory pattern is regular, symmetrical. GI: No signs and/or symptoms were reported involving the gastrointestinal system. : No signs and/or symptoms were reported regarding the genitourinary system. Derm: No signs and/or symptoms reported regarding the dermatologic system. Musculoskeletal: No signs and/or symptoms reported regarding the musculoskeletal system. 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 - Infectious Disease History:: Denies. - Social history:: Smoking status: Patient denies any tobacco usage or history of. Screenin:45 [facility] ED Fall Risk Assessment (Adult) History of falling in the last 3 months, kj2 including since admission No falls in past 3 months (0 pts) Confusion or Disorientation No (0 pts) Intoxicated or Sedated No (0 pts) Impaired Gait No (0 pts) Mobility Assist Device Used No (0 pt) Altered Elimination No (0 pt) Score/Fall Risk Level 0 - 2 = Low Risk. Abuse screen: Denies threats or abuse. Denies injuries from another. Nutritional screening: No deficits noted. Tuberculosis screening: No symptoms or risk factors identified. Assessment: 13:17 General: Appears uncomfortable, Behavior is cooperative. Pain: Complains of pain in kj2 forehead Pain currently is 9 out of 10 on a pain scale. Neuro: Level of Consciousness is awake, alert, obeys commands, Oriented to person, place, time, situation. Cardiovascular: Patient's skin is warm and dry. Respiratory: Airway is patent Respiratory effort is unlabored. GI: No deficits noted. : No deficits noted. 14:13 Reassessment: Patient and/or family updated on plan of care and expected duration. Pain kj2 level reassessed. Patient is alert, oriented x 3, equal unlabored respirations, skin warm/dry/pink. Vital Signs: 12:07 BP 130 / 86; Pulse 75; Resp 16; Temp 97.4(O); Pulse Ox 99% ; Weight 93.44 kg; Height 5 tl4 ft. 6 in. ; Pain 9/10; 13:19 BP 107 / 76; Pulse 79; Resp 20; Pulse Ox 100% on R/A; kj2 14:41 BP 115 / 68; Pulse 57; Resp 18; Pulse Ox 100% on R/A; kj2 12:07 Body Mass Index 33.25 (93.44 kg, 167.64 cm) tl4 12:07 Pain Scale: Adult tl4 [place] Coma Score: 13:16 Eye Response: spontaneous(4). Motor Response: obeys commands(6). Verbal Response: sd2 oriented(5). Total: 15. ED Course: 11:59 Patient arrived in ED. im 12:08 Triage completed. tl4 12:09 Renetta Ascencio MD is Attending Physician. sd2 12:10 Arm band placed on right wrist. tl4 13:17 Nani Ahmadi, RN is Primary Nurse. kj2 13:38 CT Head Brain wo Cont In Process Unspecified. EDMS 14:44 Warm blanket given. kj2 14:45 No provider procedures requiring assistance completed. kj2 14:46 Jose Cespedes MD is Referral Physician. sd2 14:48 Patient has correct armband on for positive identification. Bed in low position. Call kj2 light in reach. Side rails up X 1. Provided Education on: call light, fall precautions. 15:10 IV discontinued, intact, bleeding controlled, No redness/swelling at site. Pressure kj2 dressing applied. Administered Medications: 14:40 Drug: diphenhydrAMINE IVP 25 mg IVP once Route: IVP; Site: right antecubital; kj2 15:12 Follow up: Response: No adverse reaction kj2 14:40 Drug: Lidoderm Topical Patch 5 % (700 mg/patch) 1 patches Topical once; leave on for 12 kj2 hours; cover most painful area; may cut into smaller pieces Route: Topical; Site: affected area; 15:11 Follow up: Response: No adverse reaction kj2 14:42 Drug: NS 0.9% IV 1000 ml IV at 1 bolus Per protocol; 1000 mL bolus Route: IV; Rate: 1 kj2 bolus; Site: right antecubital; 15:12 Follow up: IV Status: Completed infusion kj2 14:42 Drug: metoCLOPramide IVP 10 mg IVP once; over 1 to 2 minutes Route: IVP; Site: right kj2 antecubital; 15:12 Follow up: Response: No adverse reaction kj2 Medication: 14:47 VIS not applicable for this client. kj2 Outcome: 14:47 Discharge ordered by . sd2 15:09 Condition: stable kj2 15:09 Discharge instructions given to patient, Instructed on discharge instructions, follow up and referral plans. Demonstrated understanding of instructions, follow-up care, 15:10 Discharged to home ambulatory, kj2 15:13 Patient left the ED. kj2 Signatures: Dispatcher [employer] Renetta Pillai MD MD sd2 Mili Nevarez Toni RN RN tl4 Nani Ahmadi RN RN kj2
[2024-02-26 18:17] VITALS: TEMP 97.4
[2024-02-26 18:18] VITALS: O2SAT 100
[2024-02-26 18:19] VITALS: BP 115/68
== END 2024-02-26 15:13 | disposition home or self-care (01) ==
LOC: ER 11:56
DX: R51.9 Headache, unspecified (principal); M62.838 Other muscle spasm
CPT/HCPCS: 85025; 80048; 36415; 84703; 70450; 96375; 96374; 99284; J2001; J2765; J1200; J7030